=== PATIENT | female | born 1990 | race African-American/Black ===

== ENCOUNTER 2022-05-17 16:14 | Emergency (ER) | payer OTHER ==
[2022-05-17 16:37] VITALS: BP 128/77
[2022-05-17 16:52] LABS: BASOPHILS # (AUTO) 0.1 10^3/uL (0.0-0.1); BASOPHILS % (AUTO) 1.2 %; EOSINOPHILS # (AUTO) 0.1 10^3/uL (0.0-0.7); EOSINOPHILS % (AUTO) 2.9 %; HGB - HEMOGLOBIN 11.1 g/dL (12.0-16.0); LYMPHOCYTES # (AUTO) 1.6 10^3/uL (1.5-3.5); LYMPHOCYTES % (AUTO) 39.4 %; MEAN CORPUSCULAR HEMOGLOBIN 27.7 pg (27.0-31.0); MEAN CORPUSCULAR HGB CONC 32.6 g/dL (32.0-36.0); MEAN CORPUSCULAR VOLUME 84.8 fL (81.0-99.0); MEAN PLATELET VOLUME 11.3 fL (7.9-10.8); MONOCYTES # (AUTO) 0.4 10^3/uL (0.0-1.0); MONOCYTES % (AUTO) 9.9 %; NEUTROPHILS # (AUTO) 1.9 10^3/uL (1.5-6.6); NEUTROPHILS % (AUTO) 46.6 %; PLT - PLATELET COUNT 196 10^3/uL (130-450); RED BLOOD COUNT 4.01 10^6/uL (4.20-5.40); RED CELL DISTRIBUTION WIDTH 12.9 % (12.0-15.0); WHITE BLOOD COUNT 4.2 x10^3/uL (4.8-10.8)
[2022-05-17 17:06] LABS: ALBUMIN 3.9 g/dL (3.2-5.5); ALBUMIN/GLOBULIN RATIO 1.3 (1.0-2.2); BILIRUBIN,TOTAL 0.5 mg/dL (0.2-1.0); CALCIUM 8.9 mg/dL (8.5-10.3); POTASSIUM 3.8 mmol/L (3.5-5.0)
--- NOTE | 2022-05-17 17:07 | XRAY Report ---
PROCEDURE: Chest 1 View X-Ray INDICATIONS: Chest pain TECHNIQUE: One view of the chest was acquired. COMPARISON: 02/21/2022 FINDINGS: Surgical changes and devices: None. Lungs and pleura: No pleural effusions or pneumothorax. Lungs are clear. Mediastinum: Mediastinal contours appear normal. Heart size is normal. Bones and chest wall: No suspicious bony lesions. Overlying soft tissues appear unremarkable. IMPRESSION: No acute cardiopulmonary findings Reviewed by: Chilo Toussaint MD on 05/17/2022 4:06 PM [facility] Approved by: Chilo Toussaint MD on 05/17/2022 4:06 PM [facility] Station ID: [id number]
--- NOTE | 2022-05-17 17:19 | ED Physician Documentation ---
History of Present Illness - Stated complaint Stated Complaint: CHEST PALPITATIONS - Chief complaint Chief Complaint: Cardiac - History obtained from History obtained from: Patient - History of Present Illness Timing: Other (Several months) Pain level max: 0 Pain level now: 0 - Additonal information Additional information: Patient is a 32-year-old female who states she has had ongoing palpitations for the past several months. Nothing seems to make it better or worse. She does not drink energy drinks or caffeine. She has been seen here for this in the past with a normal work-up. She states that her doctor is referred her to cardiology but has not ordered any further testing. She states that she feels like her heart races but when she checks on her blood pressure machine at home but says her heart rate is in the 80s. No fevers. No chills. No nausea or vomiting. No chest pain. No possibility of . No leg swelling. No PE/DVT risk factors. Not on any hormonal control. Patient currently does not feel the palpitations Review of Systems Constitutional: denies: Fever, Chills Respiratory: denies: Cough GI: denies: Vomiting, Diarrhea : denies: Now EGA Skin: denies: Rash Musculoskeletal: denies: Neck pain, Back pain Neurologic: denies: Headache PD PAST MEDICAL HISTORY - Past Medical History Past Medical History: No - Present Medications Home Medications: Ambulatory Orders Medication Instructions Recorded Confirmed Multivit-Minerals/Folic Acid 200 mcg PO 02/21/22 [Multivitamin Gummies] - Allergies Allergies/Adverse Reactions: Allergies Allergy/AdvReac Type Severity Reaction Status Date / Time No Known Drug Allergies Allergy Verified 05/17/22 16:22 - Social History Does the pt smoke?: No Smoking Status: Never smoker PD ED PE NORMAL - Vitals Vital signs reviewed: Yes - General General: Alert and oriented X 3, No acute distress, Well developed/nourished - HEENT HEENT: PERRL, Moist mucous membranes - Neck Neck: Supple, no meningeal sign - Cardiac Cardiac: RRR, Strong equal pulses - Respiratory Respiratory: No respiratory distress, Clear bilaterally - Abdomen Abdomen: Soft, Non tender, Non distended - Derm Derm: Warm and dry - Extremities Extremities: No edema, No calf tenderness / cord - Neuro Neuro: Alert and oriented X 3 - Psych Psych: Normal mood, Normal affect Results - Vitals Vitals: Vital Signs - 24 hr 06/19/22 06/19/22 16:19 16:36 Temperature 36.8 C Heart Rate 90 79 Respiratory 14 18 Rate Blood Pressure 136/77 H 128/77 O2 Saturation 100 100 Oxygen O2 Source Room air - EKG (time done) 1617 Rate: Rate (enter#) (75) Rhythm: NSR [place]: Normal Intervals: Normal IA QRS: Normal Ischemia: Normal ST segments - Labs Labs: Laboratory Tests 05/17/22 05/17/22 05/17/22 16:46 16:46 16:46 WBC 4.2 L RBC 4.01 L Hgb 11.1 L Hct 34.0 L MCV 84.8 MCH 27.7 MCHC 32.6 RDW 12.9 Plt Count 196 MPV 11.3 H Neut # (Auto) 1.9 Lymph # (Auto) 1.6 [place] # (Auto) 0.4 Eos # (Auto) 0.1 Baso # (Auto) 0.1 Absolute Nucleated RBC 0.00 Nucleated RBC % 0.0 Sodium 137 Potassium 3.8 Chloride 104 Carbon Dioxide 26 Anion Gap 7.0 BUN 15 Creatinine 1.0 Estimated GFR (MDRD) 77 L Glucose 93 Calcium 8.9 Total Bilirubin 0.5 AST 16 ALT 17 Alkaline Phosphatase 39 L Troponin I High Sens < 2.3 L Total Protein 7.0 Albumin 3.9 Globulin 3.1 Albumin/Globulin Ratio 1.3 Lipase 28 - Rads (name of study) cxr Radiology: Final report received, EMP read contemporaneously, See rad report PD MEDICAL DECISION MAKING - ED course Complexity details: reviewed old records, reviewed results, re-evaluated patient, considered differential (No ST elevation [place], no aortic dissection, no PE, no tension pneumothorax, no aortic aneurysm), d/w patient ED course: No acute findings on EKG, laboratory testing or chest x-ray. Recommend that she follow-up with her doctor for a Holter monitor. This can be ordered prior to her cardiology consult. No arrhythmias on telemetry here. Patient counseled regarding signs and symptoms for which I believe and urgent re-evaluation would be necessary. Patient with good understanding of and agreement to plan and is comfortable going home at this time This document was made in part using voice recognition software. While efforts are made to proofread this document, sound alike and grammatical errors may occur. Departure - Departure Disposition: Home, Self Care Clinical Impression: Palpitations Condition: Good Instructions: ED Palpitations Follow-Up: Your,doctor in 1 week [Other] Comments: You should ask your doctor about prescribing a Holter monitor for you. This is a monitor you can wear for anywhere from a few days up to a month. It will record your heart rhythm and send a result to a oil winterizer to be looked at. This can be ordered prior to your cardiology appointment. They do have these types of monitors here at the hospital if your doctor would like to send a referral here. Your blood work does not show any acute abnormalities. Please avoid caffeine, alcohol. Return if you worsen Discharge Date/Time: 05/17/22 17:28
== END 2022-05-17 17:28 | disposition home or self-care (01) ==
LOC: ED 16:14
DX: R00.2 Palpitations (principal)
CPT/HCPCS: 36415; 80053; 83690; 84484; 85025; 93005; 99283; 99284

== ENCOUNTER 2022-06-24 16:53 | Emergency (ER) | payer OTHER ==
[2022-06-24 17:01] VITALS: BP 142/88
[2022-06-24] MEDS ORDERED: BACITRACIN ZINC OINT 1 PACKET TOP STA (18:26)
--- NOTE | 2022-06-24 18:30 | ED Physician Documentation ---
History of Present Illness - Stated complaint Stated Complaint: LT FINGER LAC - Chief complaint Chief Complaint: Laceration - Additonal information Additional information: 32-year-old female presents emergency department for evaluation of a laceration on the dorsum of her left middle finger sustained when cutting chicken this afternoon. Uncertain of last tetanus but she declines tetanus update today. Patient is right-hand dominant Review of Systems Constitutional: reports: Reviewed and negative Cardiac: reports: Reviewed and negative Respiratory: reports: Reviewed and negative GI: reports: Reviewed and negative : reports: Reviewed and negative Skin: reports: Laceration (s) Musculoskeletal: reports: Reviewed and negative PD PAST MEDICAL HISTORY - Present Medications Home Medications: Ambulatory Orders Medication Instructions Recorded Confirmed Multivit-Minerals/Folic Acid 200 mcg PO 02/21/22 [Multivitamin Gummies] - Allergies Allergies/Adverse Reactions: Allergies Allergy/AdvReac Type Severity Reaction Status Date / Time No Known Drug Allergies Allergy Verified 06/24/22 17:02 - Social History Does the pt smoke?: No Smoking Status: Never smoker PD ED PE EXPANDED - Extremities Extremities: Left finger(s) (0.5 cm laceration on the dorsum of the left middle finger at the DIP joint. Preserved flexion and extension.) Results - Vitals Vitals: Vital Signs - 24 hr 06/24/22 16:59 Temperature 36.6 C Heart Rate 69 Respiratory 16 Rate Blood Pressure 142/88 H O2 Saturation 100 Oxygen O2 Source Room air PD MEDICAL DECISION MAKING - ED course Complexity details: considered differential, d/w patient ED course: 32-year-old female presents emergency department for evaluation of a 0.5 cm laceration on the dorsum of her left middle finger. On exam no evidence of tendon injury. This is a very small and superficial wound that I do not feel would benefit from primary closure. Discussed routine wound care, Neosporin and simple bandage. Emergent return precautions discussed Departure - Departure Disposition: 01 Home, Self Care Clinical Impression: Finger laceration Qualifiers: Encounter type: initial encounter Finger: middle finger Damage to nail status: without damage Foreign body presence: without foreign body Laterality: left Qualified Code(s): S61.213A - Laceration without foreign body of left middle finger without damage to nail, initial encounter Condition: Stable Record reviewed to determine appropriate education?: Yes Comments: The laceration on the top of your left middle finger is small enough that it will heal well without any formal closure such as suturing. In general I recommend that you wash your hand with warm soap and water, pat dry apply any antibiotic ointment such as bacitracin or Neosporin and then a simple bandage. I would expect this wound to be fully healed over the next week.
[2022-06-24] MEDS ORDERED: BACITRACIN ZINC OINT 1 PACKET TOP ONE (18:42)
== END 2022-06-24 18:34 | disposition home or self-care (01) ==
LOC: ED 16:53
DX: S61.213A Laceration without foreign body of left middle finger without damage to nail, initial encounter (principal); W26.0XXA Contact with knife, initial encounter; Y93.G1 Activity, food preparation and clean up
CPT/HCPCS: 99281; 99282; A9270

== ENCOUNTER 2022-06-29 08:00 | Outpatient (CLI) | payer OTHER ==
[2022-06-29 20:38] LABS: BASOPHILS % (AUTO) 0.9 %; EOSINOPHILS # (AUTO) 0.1 10^3/uL (0.0-0.7); EOSINOPHILS % (AUTO) 2.3 %; HCT - HEMATOCRIT 33.4 % (37.0-47.0); HGB - HEMOGLOBIN 11.1 g/dL (12.0-16.0); LYMPHOCYTES # (AUTO) 1.7 10^3/uL (1.5-3.5); LYMPHOCYTES % (AUTO) 38.1 %; MEAN CORPUSCULAR HEMOGLOBIN 28.1 pg (27.0-31.0); MEAN CORPUSCULAR HGB CONC 33.2 g/dL (32.0-36.0); MEAN CORPUSCULAR VOLUME 84.6 fL (81.0-99.0); MEAN PLATELET VOLUME 12.1 fL (7.9-10.8); MONOCYTES # (AUTO) 0.3 10^3/uL (0.0-1.0); MONOCYTES % (AUTO) 7.5 %; NEUTROPHILS # (AUTO) 2.3 10^3/uL (1.5-6.6); PLT - PLATELET COUNT 232 10^3/uL (130-450); RED BLOOD COUNT 3.95 10^6/uL (4.20-5.40); RED CELL DISTRIBUTION WIDTH 13.2 % (12.0-15.0); WHITE BLOOD COUNT 4.4 x10^3/uL (4.8-10.8)
[2022-06-29 20:53] LABS: ALBUMIN 4.3 g/dL (3.2-5.5); ALBUMIN/GLOBULIN RATIO 1.6 (1.0-2.2); BILIRUBIN,TOTAL 0.5 mg/dL (0.2-1.0); CALCIUM 9.4 mg/dL (8.5-10.3); CREATININE 0.8 mg/dL (0.4-1.0); POTASSIUM 3.9 mmol/L (3.5-5.0)
[2022-06-29 21:09] LABS: THYROID STIMULATING HORMONE 1.52 uIU/mL (0.34-5.60)
== END 2022-06-29 23:59 | disposition home or self-care (01) ==
LOC: LAB.N 08:00
PROVIDERS: ATTEND Registered Nurse
DX: R07.89 Other chest pain (principal)
CPT/HCPCS: 36415; 80053; 84443; 84484; 85025; 85379

== ENCOUNTER 2022-10-11 20:36 | Emergency (ER) | payer OTHER ==
--- NOTE | 2022-10-11 21:16 | XRAY Report ---
PROCEDURE: Chest 1 View X-Ray INDICATIONS: Chest pain TECHNIQUE: One view of the chest was acquired. COMPARISON: 05/17/2022. FINDINGS: Surgical changes and devices: None. Lungs and pleura: No pleural effusions or pneumothorax. Lungs are clear. Mediastinum: Mediastinal contours appear normal. Heart size is normal. Bones and chest wall: No suspicious bony lesions. Overlying soft tissues appear unremarkable. IMPRESSION: 1. No acute cardiopulmonary disease. Reviewed by: Reza Fuentes MD on 10/11/2022 9:15 PM [facility] Approved by: Reza Fuentes MD on 10/11/2022 9:15 PM [facility] Station ID: [id number]
[2022-10-11 21:32] LABS: BASOPHILS % (AUTO) 0.4 %; EOSINOPHILS % (AUTO) 0.4 %; HCT - HEMATOCRIT 34.6 % (37.0-47.0); HGB - HEMOGLOBIN 11.5 g/dL (12.0-16.0); LYMPHOCYTES # (AUTO) 0.4 10^3/uL (1.5-3.5); LYMPHOCYTES % (AUTO) 7.1 %; MEAN CORPUSCULAR HEMOGLOBIN 27.9 pg (27.0-31.0); MEAN CORPUSCULAR HGB CONC 33.2 g/dL (32.0-36.0); MEAN PLATELET VOLUME 11.3 fL (7.9-10.8); MONOCYTES # (AUTO) 0.5 10^3/uL (0.0-1.0); MONOCYTES % (AUTO) 9.2 %; NEUTROPHILS # (AUTO) 4.4 10^3/uL (1.5-6.6); NEUTROPHILS % (AUTO) 82.5 %; PLT - PLATELET COUNT 164 10^3/uL (130-450); RED BLOOD COUNT 4.12 10^6/uL (4.20-5.40); RED CELL DISTRIBUTION WIDTH 12.8 % (12.0-15.0); WHITE BLOOD COUNT 5.3 x10^3/uL (4.8-10.8)
[2022-10-11 21:50] LABS: ALBUMIN 4.4 g/dL (3.2-5.5); ALBUMIN/GLOBULIN RATIO 1.4 (1.0-2.2); BILIRUBIN,TOTAL 0.7 mg/dL (0.2-1.0); CALCIUM 9.5 mg/dL (8.5-10.3); POTASSIUM 3.6 mmol/L (3.5-5.0); TOTAL PROTEIN 7.5 g/dL (6.7-8.2)
--- NOTE | 2022-10-12 00:13 | ED Physician Documentation ---
History of Present Illness - Stated complaint Stated Complaint: RAPID HR - Chief complaint Chief Complaint: Cardiac - History obtained from History obtained from: Patient - Additonal information Additional information: 33-year-old woman with past medical history of palpitations status post negative Holter monitoring and echocardiogram, presents with palpitations this past evening. Patient also has had nonproductive cough and chills for the past 1 to 2 days. Son is sick at home with similar symptoms. Denies shortness of breath, nausea, diaphoresis, leg swelling, rhinorrhea. Review of Systems Ten Systems: 10 systems reviewed and negative Constitutional: reports: Chills, Fatigue Nose: denies: Rhinorrhea / runny nose Throat: reports: Sore throat Cardiac: reports: Chest pain / pressure, Palpitations Respiratory: reports: Cough. denies: Dyspnea GI: denies: Nausea PD PAST MEDICAL HISTORY - Present Medications Home Medications: Ambulatory Orders Medication Instructions Recorded Confirmed Multivit-Minerals/Folic Acid 200 mcg PO DAILY 02/21/22 10/11/22 [Multivitamin Gummies] Oseltamivir Phosphate [Tamiflu] 75 mg PO BID #10 cap 10/12/22 - Allergies Allergies/Adverse Reactions: Allergies Allergy/AdvReac Type Severity Reaction Status Date / Time No Known Drug Allergies Allergy Verified 10/11/22 20:45 - Social History Does the pt smoke?: No Smoking Status: Never smoker PD ED PE NORMAL - Vitals Vital signs reviewed: Yes - General General: Alert and oriented X 3, No acute distress, Well developed/nourished - HEENT HEENT: Atraumatic, PERRL, EOMI, Moist mucous membranes, Pharynx benign - Neck Neck: Supple, no meningeal sign - Cardiac Cardiac: RRR - Respiratory Respiratory: No respiratory distress, Clear bilaterally - Abdomen Abdomen: Non tender, Non distended - Derm Derm: Normal color, Warm and dry - Extremities Extremities: No edema - Neuro Neuro: Alert and oriented X 3, roll grinder 2-12 intact, No motor deficit, No sensory deficit - Psych Psych: Other (anxious affect, improving after exam) Results - Vitals Vitals: Vital Signs - 24 hr 10/11/22 10/11/22 10/11/22 20:41 21:56 23:00 Temperature 37.8 C Heart Rate 141 H 119 H 109 H Respiratory 16 18 18 Rate Blood Pressure 170/89 H 129/84 H 131/87 H O2 Saturation 99 100 100 Oxygen O2 Source Room air - Labs Labs: Laboratory Tests 10/11/22 10/11/22 10/11/22 21:26 21:26 21:26 WBC 5.3 RBC 4.12 L Hgb 11.5 L Hct 34.6 L MCV 84.0 MCH 27.9 MCHC 33.2 RDW 12.8 Plt Count 164 MPV 11.3 H Neut # (Auto) 4.4 Lymph # (Auto) 0.4 L [place] # (Auto) 0.5 Eos # (Auto) 0.0 Baso # (Auto) 0.0 Absolute Nucleated RBC 0.00 Nucleated RBC % 0.0 Sodium 136 Potassium 3.6 Chloride 105 Carbon Dioxide 25 Anion Gap 6.0 BUN 12 Creatinine 1.0 Estimated GFR (MDRD) 77 L Glucose 128 H Calcium 9.5 Total Bilirubin 0.7 AST 17 ALT 17 Alkaline Phosphatase 36 L Troponin I High Sens 3.7 Total Protein 7.5 Albumin 4.4 Globulin 3.1 Albumin/Globulin Ratio 1.4 Lipase 25 Influenza A (Rapid) Influenza B (Rapid) 10/12/22 00:15 WBC RBC Hgb Hct MCV MCH MCHC RDW Plt Count MPV Neut # (Auto) Lymph # (Auto) [place] # (Auto) Eos # (Auto) Baso # (Auto) Absolute Nucleated RBC Nucleated RBC % Sodium Potassium Chloride Carbon Dioxide Anion Gap BUN Creatinine Estimated GFR (MDRD) Glucose Calcium Total Bilirubin AST ALT Alkaline Phosphatase Troponin I High Sens Total Protein Albumin Globulin Albumin/Globulin Ratio Lipase Influenza A (Rapid) POSITIVE H Influenza B (Rapid) Negative PD MEDICAL DECISION MAKING - ED course ED course: 33yF p/w palpitations that have already been thoroughly worked up in past, in addition to URI sx today. Well-appearing on exam. Discussed with patient that her test results showed no emergent findings. Discussed her anemia. Plan to follow-up with her primary care provider. Return precautions given. We will send Flu swab to determine if she would be a candidate for Tamiflu. Departure - Departure Disposition: 01 Home, Self Care Clinical Impression: Viral upper respiratory illness, Palpitations Condition: Stable Instructions: ED Viral Syndrome Prescriptions: Oseltamivir Phosphate [Tamiflu] 75 mg PO BID #10 cap Comments: You were seen in the ED for palpitations. Your labwork, ekg, chest xray and exam uncovered no emergent findings. You do have the flu (influenza A) and should stay home and get lots of rest. Take tamiflu (antiviral treatment) to help get better. Please follow up with your primary care provider. Return to the ED for any new or worsening symptoms or if you have other concerns. Tamiflu [facility].
[2022-10-12] MEDS ORDERED: ACETAMINOPHEN 325 MG TABLET PO STA (02:03)
[2022-10-12 02:04] VITALS: BP 126/80
== END 2022-10-12 02:07 | disposition home or self-care (01) ==
LOC: ED 20:36
DX: J06.9 Acute upper respiratory infection, unspecified (principal); R00.2 Palpitations
CPT/HCPCS: 36415; 71045; 80053; 83690; 84484; 85025; 87275; 87276; 93005; 99282; 99284; A9270

== ENCOUNTER 2025-07-18 08:18 | Inpatient (IN) ==
[2025-07-18] MEDS ORDERED: OXYTOCIN 10 UNIT/ML VIAL IM PRN (08:55)
[2025-07-18] MEDS ORDERED: METHYLERGONOVINE 0.2 MG/ML VIAL IM PRN (08:55)
[2025-07-18] MEDS ORDERED: ONDANSETRON ODT 4 MG TABLET PO PRN (08:55)
[2025-07-18] MEDS ORDERED: ACETAMINOPHEN 500 MG TABLET PO PRN ×2 (08:55)
[2025-07-18] MEDS ORDERED: fentaNYL 100 MCG/2 ML VIAL IVP PRN (08:55)
[2025-07-18] MEDS ORDERED: SODIUM CHLORIDE FLUSH 0.9% 10 ML SYRINGE IVP PRN (08:55)
[2025-07-18] MEDS ORDERED: DOCUSATE SODIUM 100 MG CAPSULE PO PRN (08:55)
[2025-07-18] MEDS ORDERED: LABETALOL 20 MG/4 ML SYRINGE IVP PRN ×3 (08:55)
[2025-07-18] MEDS ORDERED: hydrALAZINE INJ 20 MG/ML VIAL IVP PRN (08:55)
[2025-07-18] MEDS ORDERED: CALCIUM CARBONATE CHEW 500 MG TABLET PO PRN ×2 (08:55→17:39)
[2025-07-18] MEDS ORDERED: TRANEXAMIC ACID IN NACL 1,000 MG/100 ML BAG IV PRN (08:55)
[2025-07-18] MEDS ORDERED: TERBUTALINE 1 MG/ML VIAL SUBQ PRN (08:55)
[2025-07-18] MEDS ORDERED: METOCLOPRAMIDE 10 MG TABLET PO PRN (08:55)
[2025-07-18] MEDS ORDERED: CARBOPROST TROMETHAMINE 250 MCG/ML VIAL IM PRN (08:55)
[2025-07-18] MEDS: FAMOTIDINE 20 MG/2 ML VIAL IVP SCH (09:00)
[2025-07-18] MEDS: SODIUM CHLORIDE FLUSH 0.9% 10 ML SYRINGE IVP SCH (09:00)
[2025-07-18 09:07] LABS: HCT - HEMATOCRIT 34.1 % (37.0-47.0); HGB - HEMOGLOBIN 11.6 g/dL (12.0-16.0); MEAN PLATELET VOLUME 11.0 fL (7.9-10.8); NRBC ABSOLUTE COUNT (AUTO) 0.00 x10^3/uL; NUCLEATED RED BLOOD CELLS AUTO 0.0 /100WBC; PLT - PLATELET COUNT 155 10^3/uL (130-450); RED CELL DISTRIBUTION WIDTH 13.2 % (12.0-15.0)
[2025-07-18 09:28] LABS: ALT ALANINE AMINOTRANSFERASE 30.0 IU/L (10-60); AST ASPARTATE AMINOTRANSFERASE 44.0 IU/L (10-42); BUN - BLOOD UREA NITROGEN 11.0 mg/dL (6-20); CARBON DIOXIDE - CO2 23.0 mmol/L (21-32); CREATININE 0.9 mg/dL (0.6-1.3); GFR - MDRD 85.0 (>89)
--- NOTE | 2025-07-18 09:28 | HISTORY & PHYSICAL EXAMINATION ---
Admit History Smoking Status: Never smoker Other Maternal History Other Maternal History: HPI: Patient is a 35-year-old -0-1-3 at 39 weeks 0 days gestation presenting for induction of labor secondary to chronic hypertension and advanced maternal age.. She has good movement. Denies loss of fluid. No GARRIDO/BV or RUQP. No vaginal bleeding. Denies nausea and vomiting. Denies urinary urgency or dysuria. All other symptoms reviewed and were negative except per HPI. Course LMP: 10/18/2024 BENJAMIN by LMP: 07/25/2025 [place]: 02/15/25 @17w2d c/w LMP Final BENJAMIN: 07/25/25 History of chronic hypertension: On medication previous pregnancies. Blood pressure normal at intake visit. No current medications Recommended starting low-dose aspirin, declined. Born in [place]. [place] 14 years[place] in [place]. orders to move to [place] mid June. so will move just after delivery. AMA recommend induction by 40 weeks and NST at 36 weeks. Heart Palpitations: First in 2020, but saw cardiology and were not worried. Recurred this but normal EKG Heart Monitor: Mostly normal rhythm, but some periods of increased heart rate and rare PAC. N rhythm abnormality otherwise. Pre- Weight: 188 lbs BMI: 25.7 Blood type: A+ Antibody Screen: negative CBC: H/H/PLT 10.6/31.5/158 RUB: NOT immune VZV: immune HBsAg: neg HepC: NR RPR: NR HIV: NR Flu: declines Covid: vaccinated PAP: 08/2024 normal GC/CT:negative HSV: denies self/partner Genetic testing: NIPT- Negative FAS:ordered 04/11- scheduled 04/17 evening Placenta: posterior fundal without previa Cord: 3VC MAGALIE: 15.9 WNL EFW: 930.5g 62.6% 50gm OGCT: 106 3HR GTT: TDAP: 05/15/25 Breast Pump: 05/15/25 EPDS: 5 RSV: out of season CBC:H/H/PLT-11.0/33.9 149 RPR: NR GBS: Delivery plan: PP BC: Likely OCPs versus implant, wants to wait several months after delivery. Will talk to her partner about a vasectomy as they are fairly certain they are done childbearing. Meds/Allgy Home Medications Ambulatory Orders Medication Instructions Recorded Confirmed vitamins 30 30 mg iron-10 cap PO 02/15/2511/22 mg iron-folic acid 1 mg-om3 capsule Allergies Allergies Allergy/AdvReac Type Severity Reaction Status Date / Time No Known Drug Allergies Allergy Verified 07/10/25 09:03 COUNT INCLUDES THE [facility] Active Problems All Active Problems (Updated 07/18/25 @ 09:28 by Luke Hi MD) Chronic hypertension (Acute) 39 weeks gestation of (Acute) Uterine size date discrepancy (Acute) Supervision of elderly multigravida (Acute) Encounter for supervision of normal , unspecified, unspecified trimester (Acute) Social History Social History (Updated 02/15/25 @ 14:05 by Nicole Ryan RN) Smoking Status: Never smoker Second hand tobacco smoke exposure: No Do you dip or chew tobacco?: No Do you vape?: No Living arrangement: At home Do you feel safe in your home environment?: Yes History of physical, verbal, emotional, or financial abuse?: No ETOH Use: None Substance Use: denies use Are you sexually active?: Yes POLST Patient has POLST: No Review of Systems Status of ROS: 10 or more systems reviewed and unremarkable except as noted in history and below Physical Other Notes Labor Progress Note/Additional Text: General: Alert, oriented, no acute distress Head: Normal cephalic atraumatic Eyes: PERRLA, extraocular motions intact. Respiratory: Normal rate of respiration. No accessory muscle use, normal respiratory effort. Abdomen: Gravid, nontender, nondistended Extremities: Normal range of motion Neuro: Oriented x3. Normal movements Psych: Appropriate mood and affect. Normal judgment and insight SVE: 3/50/-3 FHT: 145 BPM baseline, moderate variability, accelerations present, no decelerations. [place]: Irregular, patient is not aware of them Plan for Labor Plan For Labor I expect patient to be DC'd or transferred within 96 hours.: Yes Conclusion/Plan Problem List (1) 39 weeks gestation of : Plan: Admit to L&D, admit labs, epidural patient's request. Favorable cervix. Will start oxytocin and consider amniotomy at next check. (2) Chronic hypertension: Plan: Mild blood pressure today. Will continue to monitor. Start antihypertensive if needed. (3) Supervision of elderly multigravida: Plan: As above. Qualifiers: Trimester: third trimester Qualified Code(s): O09.523 - Supervision of elderly multigravida, third trimester Lab Results 07/18/25 08:45
[2025-07-18] MEDS: OXYTOCIN/SODIUM CHLORIDE 500 ML IV SCH (10:08)
[2025-07-18] MEDS: LACTATED RINGERS 1,000 ML IV PRN (10:11)
--- OUTSIDE RECORDS SUMMARY | 2025-07-18 10:21 | EXTERNAL MEDICAL SUMMARY RPT | Continuity of Care Document ---
Author Organization [facility] Address [address] [place], [place] [address]te [address] [place] [id number] Phone Problems date description facility 2025-05-09 11:19 Encounter for superv ision of normal , unspecified, unspecified trimester [facility] 2025-05-10 00:04 Encounter for superv ision of normal , unspecified, unspecified trimester [facility] 2025-05-14 00:00 Urinary tract infection, site n ot specified [facility] 2025-05-14 10:20 Urinary tract infection, site n ot specified [facility] 2025-05-15 13:40 [facility] 2025-05-15 13:56 En[facility] 2025-05-15 15:28 Encounter for immunization [facility] 2025-05-16 15:49 Urinary tract infection, site n ot specified [facility] 2025-05-16 15:49 Palpitations [facility] 2025-05-16 15:49 Other chest pain [facility] 2025-06-26 09:58 Supervision of elder ly multigravida, unspecified trimester [facility] 2025-06-26 09:58 Uterine size-date discrepancy, unspecified trimester [facility] 2025-06-27 08:20 Supervision of elder ly multigravida, unspecified trimester [facility] 2025-06-27 08:20 Uterine size-date discrepancy, unspecified trimester [facility] 2025-06-28 14:14 Supervision of elder ly multigravida, unspecified trimester [facility] 2025-06-28 14:14 Uterine size-date discrepancy, unspecified trimester [facility] 2025-06-28 14:16 Supervision of elder ly multigravida, unspecified trimester [facility] 2025-06-28 14:16 Uterine size-date discrepancy, unspecified trimester [facility] 2025-07-03 09:40 Encounter for screeni ng for Streptococcus B [facility] 2025-07-03 10:35 Encounter for screeni ng for Streptococcus B [facility] 2025-07-04 00:03 Encounter for screeni ng for Streptococcus [facility] 2025-07-04 19:43 Supervision of elder ly multigravida, unspecified trimester [facility] 2025-07-04 19:43 Uterine size-date discrepancy, unspecified trimester [facility] 2025-07-05 00:02 Supervision of elder ly multigravida, unspecified trimester [facility] 2025-07-05 00:02 Uterine size-date discrepancy, unspecified trimester [facility] 2025-07-05 08:58 Supervision of elderly multigra fabiana, third trimester [facility] 2025-07-05 08:58 Encounter for screeni ng for Streptococcus B [facility] 2025-07-05 08:59 Encounter for screeni ng for Streptococcus B [facility] 2025-07-10 10:19 Supervision of elder ly multigravida, unspecified trimester [facility] 2025-07-13 14:35 Supervision of elderly multigra fabiana, third trimester [facility] 2025-07-13 14:35 Supervision of elder ly multigravida, unspecified trimester [facility] 2025-07-18 09:31 Essential (primary) hypertensio n [facility] 2025-07-18 09:31 Supervision of elderly multigra fabiana, third trimester [facility] 2025-07-18 09:31 39 weeks gestation of [facility] 2025-07-18 09:32 Essential (primary) hypertensio n [facility] 2025-07-18 09:32 Supervision of elderly multigra fabiana, third trimester [facility] 2025-07-18 09:32 39 weeks gestation of [facility] Results/Labs test date facility value unit notes Result panel 1 MEAN PLATELET VOLUME 2025-05-09 12:31 [facility] 10.9 fl (missing) GLUCOSE,1H PP 50GM DOSE 2025-05-09 12:31 [facility] 106 mg/dl Social History date description facility
[2025-07-18 13:25] LABS: TOTAL PROTEIN,URINE TIMED 10.0 mg/dL
--- NOTE | 2025-07-18 14:01 | ANESTHESIA PROCEDURE NOTE ---
Pre-Anesthesia VS, & Labs Diagnosis Surgical Diagnosis:: induction of labor Procedure Procedure: vaginal delivery Vitals Vital Signs: Temp Pulse Resp BP 36.8 C 82 16 146/93 H 07/18/25 08:58 07/18/25 08:58 07/18/25 08:58 07/18/25 08:58 NPO NPO: Other (clear liquids) Is Patient ?: Yes Lab Results Current Lab Results: Laboratory Tests 07/18/25 09:21: Blood Type Recheck A POSITIVE 07/18/25 08:45: WBC 6.6, RBC 3.94 L, Hgb 11.6 L, Hct 34.1 L, MCV 86.5, MCH 29.4, MCHC 34.0, RDW 13.2, Plt Count 155, MPV 11.0 H, Neut # (Auto) 4.4, Lymph # (Auto) 1.4 L, [place] # (Auto) 0.6, Eos # (Auto) 0.1, Baso # (Auto) 0.0, Absolute Nucleated RBC 0.00, Nucleated RBC % 0.0, Sodium 135, Potassium 3.8, Chloride 107, Carbon Dioxide 23, Anion Gap 5.0 L, BUN 11, Creatinine 0.9, Estimated GFR (MDRD) 85 L, Glucose 104, Calcium 9.2, Total Bilirubin 0.5, AST 44 H, ALT 30, A lkaline Phosphatase 193 H, Total Protein 6.2 L, Albumin 3.4, Globulin 2.8, Albumin/Globulin Ratio 1.2, Blood Type A POSITIVE, Antibody Screen NEGATIVE Lab results reviewed: Yes 07/18/25 08:45 07/18/25 08:45 Meds/Allgy Home Medications Ambulatory Orders Medication Instructions Recorded Confirmed vitamins 30 30 mg iron-10 cap PO 02/15/2511/22 mg iron-folic acid 1 mg-om3 capsule Allergies Allergies Allergy/AdvReac Type Severity Reaction Status Date / Time No Known Drug Allergies Allergy Verified 07/10/25 09:03 PFS Active Problems All Active Problems Chronic hypertension (Acute) 39 weeks gestation of (Acute) Uterine size date discrepancy (Acute) Supervision of elderly multigravida (Acute) Encounter for supervision of normal , unspecified, unspecified trimester (Acute) Social History Social History (Updated 07/18/25 @ 09:28 by Luke Hi MD) Smoking Status: Never smoker Second hand tobacco smoke exposure: No Do you dip or chew tobacco?: No Do you vape?: No Patient requests smoking cessation consult: No Initiate information on smoking cessation: No Living arrangement: At home Do you feel safe in your home environment?: Yes History of physical, verbal, emotional, or financial abuse?: No ETOH Use: None Substance Use: denies use Are you sexually active?: Yes POLST Patient has POLST: No Anesthesia Exam (Expanded) Exam General: Alert, Oriented x3 and Cooperative Dental: WNL Mouth Openin Fingerbreadth Neck Mobility: Normal Mallampati classification: II Thyromental Distance: 4-6 cm Exam Exam Vital Signs: Vital Signs x48h Temp Pulse Resp BP 07/18/25 08:58 36.8 C 82 16 146/93 H Plan Plan Anesthesia Type: Epidural Consent for Procedure(s) Verified and Reviewed: Yes Code Status: Attempt Resuscitation ASA Classification ASA classification: 2-Mild systemic disease Is this case an emergency?: No
--- NOTE | 2025-07-18 14:08 | PROVIDER PROGRESS NOTE ---
Labor Progress Note Labor Progress Note Labor Progress Note/Additional Text: Contractions present but not strong. Better head engagement. Amniotomy performed after discussion. Clear fluid. Fetus category 1. 135 beats minute baseline, moderate variability, accelerations present, no decelerations. Irregular contr actions. Epidural at patient's request.
[2025-07-18] MEDS ORDERED: BUPIVACAINE 0.25% PF 10 ML VIAL ONE (15:20)
[2025-07-18] MEDS: OXYTOCIN/SODIUM CHLORIDE 500 ML IV PRN (16:17)
[2025-07-18] MEDS ORDERED: WITCH HAZEL/GLYCERIN 1 PAD TOP PRN (17:39)
[2025-07-18] MEDS ORDERED: ONDANSETRON 4 MG/2 ML VIAL IVP PRN (17:39)
[2025-07-18] MEDS ORDERED: SIMETHICONE CHEW 80 MG TABLET PO PRN (17:39)
[2025-07-18] MEDS ORDERED: LACTATED RINGERS 1,000 ML IV SCH (18:00)
--- NOTE | 2025-07-18 18:06 | DELIVERY NOTE ---
Delivery Note Labor Labor: positive Augmented by ARM and Augmented by oxytocin Presentation Presentation: positive Vertex Amniotic Fluid Description Amniotic Fluid Description: positive Clear Laceration Laceration: positive 1st degree Suture Suture Type: positive Vicryl Suture Size: positive 3-0 Delivery Outcome Delivery Date: 07/18/25 Delivery Time: 16:13 Delivery Outcome: positive Livebirth Paradox Paradox: positive Placed in direct skin contact with mother sex: positive Male Cord Cord: positive 3 vessels Placenta Placenta: positive Spontaneous Estimated Blood Loss Estimated Blood Loss (in cc): 150 Post Delivery Events Post Delivery Events: positive No post delivery events Delivery Comments (Free Text/Narrative) Delivery Comments (Free Text/Narrative): Preoperative Diagnoses 39 weeks gestation Chronic hypertension Advanced maternal age Postoperative Diagnoses Same Delivery of live padilla Status post spontaneous vaginal delivery Summary Patient is admitted at 39 weeks for induction of labor secondary to chronic hypertension. She was checked and found to have a favorable cervix, so oxytocin was started as head is not engaged. She had an amniotomy performed her for several hours and quickly progressed. She was noted to be complete, very uncomfortable, and asked for neuraxial anesthesia. We did perform a spinal block which allowed her some relief. During the placement, we decreased her oxytocin, so after block, had to restart. She then progressed able to push and when ready was in stirrups. Delivery Summary: Patient was placed in the dorsal lithotomy position. Upon maternal pushing the head was delivered atraumatically followed by the anterior shoulder, posterior shoulder, then the remainder of the 's body. A male was delivered with APGARS of 8 at 1 minute and 9 at 5 minutes. The was placed on its mother's chest . After the cord finished pulsating, the umbilical cord was clamped times two and cut. The placenta delivered intact with three vessel cord. Placenta was not sent to pathology. Thirty units of Pitocin were added to the IV fluid and allowed to run freely. Uterine massage was performed until uterus was deemed firm. Upon inspection of the perineum, a second-degree midline laceration was noted in her previous scar tissue. This was repaired with a small suture of 3-0 Vicryl. Upon re-inspection the patient was hemostatic. Uterus again massaged and found to be firm. Needle and sponge counts were correct. Patient was stable and allowed to recover in L&D room. Infant was stable and remained in room with mother. weight 4250g.
[2025-07-18] MEDS: IBUPROFEN 600 MG TABLET PO SCH (18:22)
[2025-07-18] MEDS ORDERED: ACETAMINOPHEN 500 MG TABLET PO SCH (22:00)
--- NOTE | 2025-07-19 08:04 | Discharge Summary ---
Discharge Summary Admit Date: 07/18/25 Discharge Date: 07/19/25 Discharging Provider: Luke Hi MD DIAGNOSES Admission Diagnoses: 39 weeks gestation Chronic hypertension Advanced maternal age Discharge Diagnoses with Status of Each Condition: Status post spontaneous vaginal delivery Delivery of live padilla HPI History of Present Illness: Subjective Patient reports she is doing well. Lochia appropriate. Denies heavy bleeding. Ambulating. Pelvic and abdominal pain well-controlled. Tolerating oral intake. Diet: Regular. Voiding without difficulty. Passing flatus. Denies BM. Patient is bonding with baby in room Breast feeding going well. Supplementing with formula Denies feeling lightheaded, dizzy or excessively fatigued. Objective General: Alert, oriented, no apparent distress. Cardiovascular: Regular rate. Regular rhythm. Lungs: No increased work of breathing. Abdomen: Uterus firm. Below umbilicus. No guarding or rebound. Extremities: No pain on palpation. No cords palpated. Distal pulses intact. HOSPITAL COURSE Hospital Course: Patient is admitted for induction of labor for chronic hypertension, 39 weeks gestation, advanced maternal age. Induction was unremarkable and was augmented with oxytocin and amniotomy. She did a small first-degree midline laceration at an old scar. Recovery was unremarkable and she discharged with her day 1. ALLERGIES Allergies Allergy/AdvReac Type Severity Reaction Status Date / Time No Known Drug Allergies Allergy Verified 07/10/25 09:03 MEDICATIONS Ambulatory Orders Medication Instructions Recorded Confirmed vitamins 30 30 mg iron-10 cap PO 02/15/2511/22 mg iron-folic acid 1 mg-om3 capsule PHYSICAL EXAM AT DISCHARGE Vital Signs: Vital Signs x48h Temp Pulse Resp BP Pulse Ox 07/19/25 05:16 36.9 C 80 16 137/88 H 98 07/19/25 01:25 36.9 C 85 16 138/94 H 99 LABS 07/18/25 08:45 07/18/25 08:45 FOLLOW UP Follow Up: With [facility] women's care in 1 week Discharge Plan Discharge Patient Disposition: 01 Home, Self Care Prescriptions: Continued PNV [id number] 30 mg iron-10 mg iron-1 mg capsule PO Diet: Regular Print Language: Arabic Patient Instructions: After a Vaginal , Depression
[2025-07-19 08:17] VITALS: O2SAT 99
--- NOTE | 2025-07-19 08:53 | PHARMACY PROGRESS NOTE ---
Best Possible Medication History Admit Date and Time: 07/18/25 0855 Home Medications Medication Instructions Recorded Confirmed Type vitamins 30 30 mg iron-10 1 cap PO DAILY 01/2807/19/25 History mg iron-folic acid 1 mg-om3 capsule Processed by: Pharmacy Medications reviewed in ED?: No Medication History completed: Yes Patient Interview: Completed (by termite technicianPeter) Secondary Source(s): Physician records and Insurance records [facility] Statement: As the person ultimately responsible for medication therapy, providers are able to order a medication from an existing home medication list in [facility] via the "Reconcile Routine" prior to Confirmation of that medication by bioinformatics support specialist. Such practice is discouraged except when the physician, in their clinical judgment, deems that a medical need exists for a medication without regard to previous use.
[2025-07-19 17:57] VITALS: BP 136/82; TEMP 98.6
--- NOTE | 2025-07-19 19:12 | Labor Flowsheet ---
Labor Flowsheet Datetime Report Generated by CPN: 07/19/2025 19:11 Datetime: 07/19/2025 17:51 VITAL SIGNS NBP Sys/Chica/Mean (mmHg): 136 : 82 : 94 Pulse: 82 Datetime: 07/19/2025 17:50 SpO2 (%): 99 Datetime: 07/18/2025 16:44 Membranes Ruptured Date/Time: 07/18/2025 13:30 Datetime: 07/18/2025 16:38 MEDICATIONS Pitocin (milliunits): Discontinued Datetime: 07/18/2025 16:20 Stage of : Recovery Datetime: 07/18/2025 16:19 Communication Comments: Delivery of placenta Datetime: 07/18/2025 16:17 Medication Comments: Pitocin Bolus Datetime: 07/18/2025 16:13 COMMUNICATION Communication: RN at Bedside; Provider at Bedside Datetime: 07/18/2025 16:11 LaborFlag: Labor Datetime: 07/18/2025 16:03 Comments: Audible FHR Not showing in the monitor Datetime: 07/18/2025 16:01 Monitor Interventions for FHR: Ultrasound Adjusted Datetime: 07/18/2025 15:55 UTERINE ACTIVITY Monitor Mode: External Frequency (min): 4-5 Quality: Moderate Duration (sec): 40-80 Pattern: Normal: <= 5 Contractions in 10 Minutes Resting Tone (Palpate): Relaxed Pitocin Checklist: No More than 1 Late Deceleration Occurred in Past 30 Minutes; No More than 2 Variable Decelerations > 60 Seconds in Duration and decreasing >60 bpm in 30 minutes; No More than 5 Uterine Contractions in 10 Minutes for any 20 Minute Interval; Uterus Palpates Soft between Contractions ASSESSMENT A Monitor Mode: External US FHR Baseline Rate : 145 Variability: Moderate 6-25 bpm Decelerations: None Category: Category I Oxygen Method: Room Air Datetime: 07/18/2025 15:49 Patient Care Comments: patient pushing with coaching Datetime: 07/18/2025 15:48 Monitor Interventions for UA: [place] Adjusted Datetime: 07/18/2025 15:33 ANESTHESIA Anesthesia Plans: Spinal Datetime: 07/18/2025 15:30 Accelerations: 15X15 Datetime: 07/18/2025 15:26 PROCEDURE TIME OUT Procedure Verify: Correct Patient Identity; Correct Side and Site are Marked; Accurate Procedure Consent Form; Agreement on Procedure to be Done; Correct Patient Position Epidural Positioning: Sitting Datetime: 07/18/2025 15:21 Anesthesia Comments: Provider in the room Janean Datetime: 07/18/2025 15:13 Notification Reason: Labor Status Datetime: 07/18/2025 14:48 VAGINAL EXAM Dilatation (cm): 8.0 Effacement (%): 80 Station: -1 Exam by: Kami Damon Vaginal Bleeding: None Cervix, Consistency: Soft Datetime: 07/18/2025 13:32 Patient Position/Activity: Left Tilt Datetime: 07/18/2025 13:31 Membrane Status: Ruptured Membranes Rupture Method: Artificial Amniotic Fluid Color: Clear Amniotic Fluid Amount: Large Amniotic Fluid Odor: Normal Datetime: 07/18/2025 13:00 Temperature (C): 36.8 MATERNAL ASSESSMENT Level of Consciousness: Alert Headache: Denies Breath Sounds, Left: Clear and Equal Breath Sounds, Right: Clear and Equal Nausea/Vomiting: Denies RUQ Epigastric Pain: Denies Datetime: 07/18/2025 12:31 Respirations: 16 Datetime: 07/18/2025 10:15 Contraction Comments: unable to determine FHR Baseline Changes: No Baseline Change Datetime: 07/18/2025 10:11 PATIENT CARE IV/Blood Work: IV Started Datetime: 07/18/2025 09:36 DTR's/Clonus: DTRs 2+; No Clonus Datetime: 07/18/2025 09:13 Provider Reviewed Strip: Yes
== END 2025-07-19 18:00 | disposition home or self-care (01) | DRG 807 ==
LOC: WFO 08:18 → FBP 08:23
PROVIDERS: ADMIT Obstetrics & Gynecology; ATTEND Obstetrics & Gynecology

== ENCOUNTER 2025-07-24 10:44 | Observation (INO) ==
--- NOTE | 2025-07-24 11:09 | ED Physician Documentation ---
History of Present Illness Stated complaint Stated Complaint: HIGH BP POST Chief complaint Chief Complaint: Cardiac Additonal information Additional information: Patient is a 35-year-old female with history of gestational hypertension as well as previous episodes of preeclampsia, 6 days who presents to the ER with elevated blood pressure, and headache beginning last night. She has had ongoing lower extremity edema since her third trimester and this is not new today. However she states that the most concerning symptom that she is dealing with is her headache. Denies any visual changes, changes to urination. Denies any chest pain, shortness of breath, flank pain, otherwise feels well. Patient states that her only other medical history is that she has had some episodes of palpitations and has been evaluated by powdered metal supervisor but is not able to tell me further details regarding this at this time. Review of Systems Status of ROS: See HPI Meds/Allgy Home Medications Ambulatory Orders Medication Instructions Recorded Confirmed vitamins 30 30 mg iron-10 1 cap PO DAILY 01/2807/19/25 mg iron-folic acid 1 mg-om3 capsule Allergies Allergies Allergy/AdvReac Type Severity Reaction Status Date / Time No Known Drug Allergies Allergy Verified 07/24/25 10:55 PFSH Active Problems All Active Problems (Updated 07/24/25 @ 11:20 by Moris Ceron MD) Pre-eclampsia (Acute) Chronic hypertension (Acute) Social History Social History (Updated 07/18/25 @ 09:28 by Luke Hi MD) Smoking Status: Never smoker Second hand tobacco smoke exposure: No Do you dip or chew tobacco?: No Do you vape?: No Patient requests smoking cessation consult: No Initiate information on smoking cessation: No Living arrangement: At home Do you feel safe in your home environment?: Yes History of physical, verbal, emotional, or financial abuse?: No ETOH Use: None Substance Use: denies use Are you sexually active?: Yes POLST Patient has POLST: No Exam Exam Vital Signs: Vital Signs x48h Temp Pulse Resp BP Pulse Ox 07/24/25 10:55 36.6 C 70 18 175/103 H 100 Constitutional normal general appearance and no apparent distress HENMT normocephalic Eyes PERRL and conjunctivae normal Respiratory breath sounds equal bilaterally and normal respiratory effort Cardiovascular normal heart rate noted and regular rhythm noted Hypertensive to 180s systolic, radial pulses 2+ and symmetric, regular rate and rhythm. Normal S1-S2. Gastrointestinal abdomen soft to palpation and nontender to palpation Extremities 2+ edema bilateral lower extremity Neurology excavating machine operator II-XII intact, no movement abnormality noted, no focal motor deficit noted and no sensory deficits noted Psychiatry Mental Status Exam documented in the separate MSE oriented x3 Results Vitals Vitals: Vital Signs - 24 hr 07/24/25 10:55 Temperature 36.6 C Temperature Source Temporal Artery Scan Pulse Rate 70 Respiratory Rate 18 Blood Pressure 175/103 H O2 Saturation 100 O2 Source Room air Pain Intensity 5 Oxygen O2 Source Room air Labs Labs: Laboratory Tests 07/24/25 11:11 WBC 5.2 RBC 4.00 L Hgb 11.4 L Hct 35.4 L MCV 88.5 MCH 28.5 MCHC 32.2 RDW 12.8 Plt Count 216 MPV 10.0 Neut # (Auto) 3.2 Lymph # (Auto) 1.3 L [place] # (Auto) 0.4 Eos # (Auto) 0.1 Baso # (Auto) 0.0 Absolute Nucleated RBC 0.00 Nucleated RBC % 0.0 PD Medical Decision Making ED course ED course: Assessment: Patient evaluated in triage area, after talk to on-call SKYDIVING INSTRUCTOR provider who would like to see her for preeclampsia/eclampsia evaluation urgently. Patient endorses only diffuse headache, without evidence of focal deficit on my examination. Hypertensive with systolics in the 180s. Otherwise feels well. Notable 2+ edema in bilateral lower extremities is chronic. After my initial evaluation, we will transfer patient to L&D with no further interventions required in the ER at this time. Labs ordered IV ordered. Discharge Plan Discharge Patient Disposition: 66 [facility] DC/Xfer Condition: Good Clinical Impression: Chronic hypertension, Pre-eclampsia Prescriptions: No Action PNV [id number] 30 mg iron-10 mg iron-1 mg capsule 1 cap PO DAILY Print Language: Tamazight
--- OUTSIDE RECORDS SUMMARY | 2025-07-24 11:16 | EXTERNAL MEDICAL SUMMARY RPT | Continuity of Care Document ---
Author Organization [facility] Address [address] [place], [place] [address]te [address] [place] [id number] Phone Problems date description facility 2025-05-09 11:19 [...] ot specified [facility] 2025-05-16 15:49 Palpitations [facility] 2025-05-16 15:49 Other [facility] 2025-06-26 09:58 Supervision of elder ly [...] Encounter for screeni ng for Streptococcus B [facility] 2025-07-03 10:35 Encounter for screeni ng for Streptococcus [facility] 2025-07-04 00:03 Encounter for screeni ng for Streptococcus B [facility] 2025-07-04 19:43 Supervision of elder ly multigravida, unspecified trimester [facility] 2025-07-04 19:43 Uterine size-date discrepancy, unspecified trimester [facility] 2025-07-05 00:02 Supervision of elder ly multigravida, unspecified trimester [facility] 2025-07-05 00:02 Uterine size-date discrepancy, unspecified trimester [facility] 2025-07-05 08:58 Supervision of elderly multigra fabiana, third trimester [facility] 2025-07-05 08:58 Encounter for screeni ng for Streptococcus B [facility] 2025-07-05 08:59 Encounter for screeni ng for Streptococcus B [facility] 2025-07-10 10:19 Supervision of elder ly multigravida, unspecified trimester [facility] 2025-07-13 14:35 Supervision of elderly multigra fabiana, third trimester [facility] 2025-07-13 14:35 Supervision of elder ly multigravida, unspecified trimester [facility] 2025-07-18 09:31 Essential (primary) hypertensio n [facility] 2025-07-18 09:31 Supervision of elderly multigra fabiana, third trimester [facility] 2025-07-18 09:31 39 weeks gestation of [facility] 2025-07-18 09:32 Essential (primary) hypertensio n [facility] 2025-07-18 09:32 Supervision of elderly multigra fabiana, third trimester [facility] 2025-07-18 09:32 39 weeks gestation of [facility] 2025-07-18 10:18 Essential (primary) hypertensio n [facility] 2025-07-18 10:18 Supervision of elderly multigra fabiana, third trimester [facility] 2025-07-18 10:18 39 weeks gestation of [facility] 2025-07-19 08:05 Essential (primary) hypertensio n [facility] 2025-07-19 08:05 Supervision of elderly edson jung, third trimester [facility] 2025-07-19 08:05 39 weeks gestation of [facility] 2025-07-19 08:06 Essential (primary) hypertensio n [facility] 2025-07-19 08:06 Supervision of elderly edson jung, third trimester [facility] 2025-07-19 08:06 39 weeks gestation of [facility] 2025-07-19 09:34 Essential (primary) hypertensio n [facility] 2025-07-19 09:34 Supervision of elderly edson jung, third trimester [facility] 2025-07-19 09:34 39 weeks gestation of [facility] 2025-07-19 09:46 Essential (primary) hypertensio n [facility] 2025-07-19 09:46 Supervision of elderly edson jung, third trimester [facility] 2025-07-19 09:46 39 weeks gestation of [facility] 2025-07-19 19:10 Essential (primary) hypertensio [facility] 2025-07-19 19:10 Supervision of elderly edson jung, third trimester [facility] 2025-07-19 19:10 39 weeks gestation of [facility] 2025-07-20 14:11 Essential (primary) hypertensio n [facility] 2025-07-20 14:11 Supervision of elderly edson jung, third trimester [facility] 2025-07-20 14:11 Unspecified maternal hypertensi on, third trimester [facility] 2025-07-20 14:11 39 weeks gestation of [facility] Results/Labs test date facility value unit notes Result panel 1 MEAN PLATELET VOLUME 2025-05-09 12:31 [facility] 10.9 fl (missing) GLUCOSE,1H PP 50GM DOSE 2025-05-09 12:31 [facility] 106 mg/dl Social History date description facility
[2025-07-24 11:17] LABS: HCT - HEMATOCRIT 35.4 % (37.0-47.0); HGB - HEMOGLOBIN 11.4 g/dL (12.0-16.0); MEAN PLATELET VOLUME 10.0 fL (7.9-10.8); NRBC ABSOLUTE COUNT (AUTO) 0.00 x10^3/uL; NUCLEATED RED BLOOD CELLS AUTO 0.0 /100WBC; PLT - PLATELET COUNT 216 10^3/uL (130-450); RED CELL DISTRIBUTION WIDTH 12.8 % (12.0-15.0)
[2025-07-24 11:35] LABS: ALT ALANINE AMINOTRANSFERASE 36.0 IU/L (10-60); AST ASPARTATE AMINOTRANSFERASE 24.0 IU/L (10-42); BUN - BLOOD UREA NITROGEN 20.0 mg/dL (6-20); CARBON DIOXIDE - CO2 29.0 mmol/L (21-32); CREATININE 1.0 mg/dL (0.6-1.3); GFR - MDRD 76.0 (>89)
[2025-07-24 12:16] VITALS: O2SAT 99
[2025-07-24 12:23] LABS: TOTAL PROTEIN,URINE TIMED 10.0 mg/dL
--- NOTE | 2025-07-24 12:36 | CONSULTATION NOTE ---
Meds/Allgy Home Medications Ambulatory Orders Medication Instructions Recorded Confirmed vitamins 30 30 mg iron-10 1 cap PO DAILY 01/2807/19/25 mg iron-folic acid 1 mg-om3 capsule Allergies Allergies Allergy/AdvReac Type Severity Reaction Status Date / Time No Known Drug Allergies Allergy Verified 07/24/25 10:55 PFSH Active Problems All Active Problems (Updated 07/24/25 @ 11:20 by Moris Ceron MD) Pre-eclampsia (Acute) Chronic hypertension (Acute) Social History Social History (Updated 07/18/25 @ 09:28 by Luke Hi MD) Smoking Status: Never smoker Second hand tobacco smoke exposure: No Do you dip or chew tobacco?: No Do you vape?: No Patient requests smoking cessation consult: No Initiate information on smoking cessation: No Living arrangement: At home Do you feel safe in your home environment?: Yes History of physical, verbal, emotional, or financial abuse?: No ETOH Use: None Substance Use: denies use Are you sexually active?: Yes POLST Patient has POLST: No Results Lab Results 07/24/25 11:11 07/24/25 11:11 Other Lab Results: Lab Results x24hrs 07/24/25 07/24/25 Range/Units 11:45 11:11 WBC 5.2 (4.8-10.8) x10^3/uL RBC 4.00 L (4.20-5.40) 10^6/uL Hgb 11.4 L (12.0-16.0) g/dL Hct 35.4 L (37.0-47.0) % MCV 88.5 (81.0-99.0) fL MCH 28.5 (27.0-31.0) pg MCHC 32.2 (32.0-36.0) g/dL RDW 12.8 (12.0-15.0) % Plt Count 216 (130-450) 10^3/uL MPV 10.0 (7.9-10.8) fL Neut # (Auto) 3.2 (1.5-6.6) 10^3/uL Lymph # (Auto) 1.3 L (1.5-3.5) 10^3/uL [place] # (Auto) 0.4 (0.0-1.0) 10^3/uL Eos # (Auto) 0.1 (0.0-0.7) 10^3/uL Baso # (Auto) 0.0 (0.0-0.1) 10^3/uL Absolute Nucleated RBC 0.00 x10^3/uL Nucleated RBC % 0.0 /100WBC Sodium 140 (135-145) mmol/L Potassium 4.0 (3.5-4.5) mmol/L Chloride 107 (101-111) mmol/L Carbon Dioxide 29 (21-32) mmol/L Anion Gap 4.0 L (6-13) BUN 20 (6-20) mg/dL Creatinine 1.0 (0.6-1.3) mg/dL Estimated GFR (MDRD) 76 L (>89) Glucose 83 (74-104) mg/dL Calcium 8.8 (8.5-10.3) mg/dL Total Bilirubin 0.4 (0.2-1.0) mg/dL AST 24 (10-42) IU/L ALT 36 (10-60) IU/L Alkaline Phosphatase 116 (42-121) IU/L Total Protein 6.6 (6.4-8.9) g/dL Albumin 3.7 (3.2-5.5) g/dL Globulin 2.9 (2.1-4.2) g/dL Albumin/Globulin Ratio 1.3 (1.0-2.2) Urine Creatinine 71.2 mg/dL Ur Total Protein Timed 10 mg/dL Protein/Creatinin Ratio 0.1 (<=0.2) Exam Exam Vital Signs: Vital Signs x48h Temp Pulse Pulse Resp BP BP Pulse Ox 07/24/25 12:18 152/93 H 07/24/25 11:45 147/90 H 07/24/25 11:32 36.7 C 61 17 154/95 H 99 07/24/25 10:55 36.6 C 70 18 175/103 H 100 Conclusion/Plan Lab Results 07/24/25 11:11 07/24/25 11:11
[2025-07-24] MEDS ORDERED: LABETALOL 100 MG TABLET PO SCH (13:30)
[2025-07-24] MEDS: ACETAMINOPHEN 500 MG TABLET PO SCH (13:32)
[2025-07-24] MEDS: LABETALOL 100 MG TABLET PO SCH ×2 (13:36→20:41)
--- NOTE | 2025-07-24 15:43 | PHARMACY PROGRESS NOTE ---
Best Possible Medication History Admit Date and Time: 07/24/25 [id number] Home Medications Medication Instructions Recorded Confirmed Type vitamins 30 30 mg iron-10 1 cap PO DAILY 01/2807/24/25 History mg iron-folic acid 1 mg-om3 capsule Processed by: Pharmacy (Medication reconciliation completed by HeadhunterHallie) Medications reviewed in ED?: No Medication History completed: Yes Patient Interview: Completed Secondary Source(s): Insurance records [facility] Statement: As the person ultimately responsible for medication therapy, providers are able to order a medication from an existing home medication list in [facility] via the "Reconcile Routine" prior to Confirmation of that medication by passport support associate. Such practice is discouraged except when the physician, in their clinical judgment, deems that a medical need exists for a medication without regard to previous use.
[2025-07-24] MEDS: LABETALOL 100 MG TABLET PO STA (16:13)
[2025-07-24] MEDS: FUROSEMIDE 20 MG/2 ML VIAL IVP ONE (16:13)
[2025-07-24] MEDS ORDERED: LABETALOL 20 MG/4 ML SYRINGE IVP ONE ×2 (17:08→17:10)
[2025-07-24] MEDS: LABETALOL 20 MG/4 ML SYRINGE IVP ONE ×2 (17:13→17:29)
[2025-07-24] MEDS ORDERED: hydrALAZINE INJ 20 MG/ML VIAL IVP PRN ×2 (17:34)
[2025-07-24] MEDS ORDERED: LABETALOL 20 MG/4 ML SYRINGE IVP PRN ×3 (17:34→18:30)
[2025-07-24] MEDS ORDERED: LABETALOL 5 MG/1 ML 20 ML MDV ONE (17:51)
[2025-07-24] MEDS: LABETALOL 20 MG/4 ML SYRINGE IVP PRN (18:00)
[2025-07-24] MEDS ORDERED: LABETALOL 5 MG/1 ML 20 ML MDV IVP PRN (18:04)
[2025-07-24] MEDS: MAGNESIUM SULFATE 4 GRAM 4 GM/50 ML BAG IV ONE (18:10)
[2025-07-24] MEDS: MAGNESIUM SULFATE IN WATER 20 GM/500 ML IV.SOLN IV SCH (18:40)
[2025-07-24] MEDS: LACTATED RINGERS 1,000 ML IV SCH (18:41)
--- NOTE | 2025-07-24 18:52 | HISTORY & PHYSICAL EXAMINATION ---
History of Present Illness History of Present Illness HPI Comment/Other: Patient is a 35-year-old G5, P4 status post spontaneous vaginal delivery on 07/18/2025. She has chronic hypertension, not on medications. She developed high blood pressure at home as well as a headache. She came in to triage and was noted to have significant elevated blood pressures. Headache did resolve with Tylenol. She denies changes in her vision, right upper quadrant pain. No shortness of breath or difficulty breathing. Meds/Allgy Home Medications Ambulatory Orders Medication Instructions Recorded Confirmed vitamins 30 30 mg iron-10 1 cap PO DAILY 01/2807/24/25 mg iron-folic acid 1 mg-om3 capsule Allergies Allergies Allergy/AdvReac Type Severity Reaction Status Date / Time No Known Drug Allergies Allergy Verified 07/24/25 10:55 PFSH Active Problems All Active Problems (Updated 07/24/25 @ 18:51 by Luke Hi MD) Pre-eclampsia (Acute) Chronic hypertension (Acute) Social History Social History (Updated 07/18/25 @ 09:28 by Luke Hi MD) Smoking Status: Never smoker Second hand tobacco smoke exposure: No Do you dip or chew tobacco?: No Do you vape?: No Patient requests smoking cessation consult: No Initiate information on smoking cessation: No Living arrangement: At home Do you feel safe in your home environment?: Yes History of physical, verbal, emotional, or financial abuse?: No ETOH Use: None Substance Use: denies use Are you sexually active?: Yes POLST Patient has POLST: No Exam Exam Vital Signs: Vital Signs x48h Temp Pulse Pulse Resp BP BP Pulse Ox 07/24/25 17:41 58 L 153/91 H 07/24/25 17:29 61 169/99 H 07/24/25 17:13 63 160/100 H 07/24/25 16:18 165/101 H 07/24/25 15:01 62 159/97 H 07/24/25 14:00 157/94 H 07/24/25 13:30 151/93 H 07/24/25 13:00 155/87 H 07/24/25 12:45 156/92 H 07/24/25 12:30 144/90 H 07/24/25 12:15 155/91 H 07/24/25 12:00 152/93 H 07/24/25 11:45 147/90 H 07/24/25 11:32 36.7 C 61 17 154/95 H 99 07/24/25 10:55 36.6 C 70 18 175/103 H 100 Constitutional: alert, no acute distress, well hydrated, well developed, well nourished, appropriate dress. Cardiovascular: Regular rate and rhythm. Respiratory: no respiratory distress. Clear to auscultation bilaterally Abdomen: nondistended, nontender, no guarding. Neuro: 1+ DTRs, no clonus Psych: affect and mood appropriate, normal interaction, good eye contact. Conclusion/Plan Problem List (1) Chronic hypertension: Plan: Plan admit for observation for chronic hypertension versus preeclampsia. While this can be difficult to discern, she was stable for about 6 hours, then having repeated elevated blood pressures. She did receive acute antihypertensives of 28, 40, 80 mg of labetalol. She was started on magnesium sulfate for seizure prophylaxis. Plan observe overnight as we titrate oral medications. She did receive 1 dose of IV Lasix as she did have significant swelling. Will continue BID. (2) Pre-eclampsia: Plan: As above Qualifiers: Trimester: unspecified trimester Qualified Code(s): O14.90 - Unspecified pre-eclampsia, unspecified trimester Lab Results 07/24/25 11:11 07/24/25 11:11
[2025-07-24] MEDS: FUROSEMIDE 20 MG/2 ML VIAL IVP SCH (20:27)
--- NOTE | 2025-07-25 08:01 | PROVIDER PROGRESS NOTE ---
Subjective Subjective Subjective: Patient is a 35-year-old now 1 week from a spontaneous vaginal delivery. She has chronic hypertension, developed severe range blood pressures last night. She was on magnesium overnight and after initial treatment it did well for approximately 12 hours then blood pressure started to increase again. Overnight, she also developed a headache, that is improving with Tylenol. She had a headache on arrival yesterday, but this also resolved with Tylenol. No changes in vision or right upper quadrant pain. Physical Exam Constitutional: alert, no acute distress, well hydrated, well developed, well nourished, appropriate dress. Cardiovascular: Regular rate and rhythm. Respiratory: no respiratory distress. Clear to auscultation bilaterally Abdomen: nondistended, nontender, no guarding. Neuro: 2+ DTRs, no clonus (clonus noted previously by nursing assessment) Psych: affect and mood appropriate, normal interaction, good eye contact. Current Medications Current Medications Current Medications: Current Medications Generic Name Dose Route Start Last Admin Trade Name Freq PRN Reason Stop Dose Admin Acetaminophen 1,000 mg 07/24/25 13:00 07/25/25 06:35 Acetaminophen 500 Mg Tablet PO 1,000 mg Q6HR JACQUELINE Administration Furosemide 20 mg 07/24/25 20:00 07/24/25 20:27 Furosemide 20 Mg/2 Ml Vial IVP 20 mg BIDDIURETIC JACQUELINE Administration Hydralazine HCl 10 mg 07/24/25 17:34 Hydralazine Inj 20 Mg/Ml Vial IVP .ONCE PRN SBP> or= 160 OR DBP> or= 110 Hydralazine HCl 5 - 10 mg 07/24/25 17:34 Hydralazine Inj 20 Mg/Ml Vial IVP Q20M PRN SBP> or= 160 OR DBP> or= 110 Protocol Magnesium Sulfate 20 gm in 500 mls @ 50 mls/hr 07/24/25 18:00 07/25/25 06:00 Magnesium Sulf 20 G/500 Ml Bag IV Not Given .Q10H JACQUELINE Lactated Ringer's 1,000 mls @ 50 mls/hr 07/24/25 18:00 07/25/25 06:00 Lr IV 0 mls/hr .Q20H JACQUELINE Infusion Ibuprofen 600 mg 07/24/25 12:33 Ibuprofen 600 Mg Tablet PO Q6HR PRN HEADACHE Labetalol HCl 20 mg 07/24/25 17:34 Labetalol 20 Mg/4 Ml Syringe IVP .ONCE PRN SBP> or= 160 OR DBP> or= 110 Labetalol HCl 20 - 40 mg 07/24/25 17:34 Labetalol 20 Mg/4 Ml Syringe IVP Q10M PRN SBP> or= 160 OR DBP> or= 110 Protocol Labetalol HCl 20 - 80 mg 07/24/25 18:30 Labetalol 20 Mg/4 Ml Syringe IVP Q10M PRN SBP> or= 160 OR DBP> or= 110 Protocol Labetalol HCl 200 mg 07/24/25 21:00 07/24/25 20:41 Labetalol 100 Mg Tablet PO 200 mg BID JACQUELINE Administration Nifedipine 10 - 20 mg 07/24/25 17:34 Nifedipine 10 Mg Capsule PO Q20M PRN SBP> or= 160 OR DBP> or= 110 Protocol Objective Vital Signs/Intake & Output Vital Signs: Vital Signs x48h Temp Pulse Resp BP 07/25/25 07:15 150/96 H 07/25/25 07:05 157/97 H 07/25/25 06:57 143/100 H 07/25/25 06:45 155/98 H 07/25/25 06:35 154/95 H 07/25/25 06:20 165/103 H 07/25/25 04:00 36.5 C 74 17 158/99 H 07/25/25 03:00 152/95 H 07/25/25 02:00 71 17 149/94 H 07/25/25 01:00 77 16 145/88 H Intake & Output: Intake & Output 07/22/25 07/23/25 07/24/25 07/25/25 23:59 23:59 23:59 23:59 Intake Total 450 / 450 2074 / 207 Output Total 1750 / 1750 2100 / 2100 Balance -1300 / -1299 - Weight (kg) 217 lb 2.485 oz Lab Results 07/25/25 08:20 07/25/25 08:20 Other Labs: Lab Results x24hrs 07/24/25 07/24/25 Range/Units 11:45 11:11 WBC 5.2 (4.8-10.8) x10^3/uL RBC 4.00 L (4.20-5.40) 10^6/uL Hgb 11.4 L (12.0-16.0) g/dL Hct 35.4 L (37.0-47.0) % MCV 88.5 (81.0-99.0) fL MCH 28.5 (27.0-31.0) pg MCHC 32.2 (32.0-36.0) g/dL RDW 12.8 (12.0-15.0) % Plt Count 216 (130-450) 10^3/uL MPV 10.0 (7.9-10.8) fL Neut # (Auto) 3.2 (1.5-6.6) 10^3/uL Lymph # (Auto) 1.3 L (1.5-3.5) 10^3/uL Luna # (Auto) 0.4 (0.0-1.0) 10^3/uL Eos # (Auto) 0.1 (0.0-0.7) 10^3/uL Baso # (Auto) 0.0 (0.0-0.1) 10^3/uL Absolute Nucleated RBC 0.00 x10^3/uL Nucleated RBC % 0.0 /100WBC Sodium 140 (135-145) mmol/L Potassium 4.0 (3.5-4.5) mmol/L Chloride 107 (101-111) mmol/L Carbon Dioxide 29 (21-32) mmol/L Anion Gap 4.0 L (6-13) BUN 20 (6-20) mg/dL Creatinine 1.0 (0.6-1.3) mg/dL Estimated GFR (MDRD) 76 L (>89) Glucose 83 (74-104) mg/dL Calcium 8.8 (8.5-10.3) mg/dL Total Bilirubin 0.4 (0.2-1.0) mg/dL AST 24 (10-42) IU/L ALT 36 (10-60) IU/L Alkaline Phosphatase 116 (42-121) IU/L Total Protein 6.6 (6.4-8.9) g/dL Albumin 3.7 (3.2-5.5) g/dL Globulin 2.9 (2.1-4.2) g/dL Albumin/Globulin Ratio 1.3 (1.0-2.2) Urine Creatinine 71.2 mg/dL Ur Total Protein Timed 10 mg/dL Protein/Creatinin Ratio 0.1 (<=0.2) Assessment/Plan Problem List (1) Chronic hypertension: Impression: Somewhat better than yesterday. Swelling has decreased mildly. Additional dose of furosemide given this morning. Also increased labetalol to 300 twice daily. Has had no sustained elevated blood pressures this morning, most recently 131/88, peak of 168/102. Plan to observe blood pressure throughout the day and titrate oral medications as needed. As her increase in labetalol, will treat acute hypertension with hydralazine. Did have a problem with nifedipine previously, so we will try to avoid. (2) Pre-eclampsia: Impression: Did receive 12 hours magnesium sulfate with well-controlled blood pressures and this was discontinued as labs were normal. After discontinuation, blood pressure elevated again. This is likely not correlated to discontinue the magnesium sulfate as it is not likely to decrease blood pressure. Qualifiers: Trimester: unspecified trimester Qualified Code(s): O14.90 - Unspecified pre-eclampsia, unspecified trimester
[2025-07-25] MEDS: LABETALOL 100 MG TABLET PO SCH ×2 (08:12→14:09)
[2025-07-25] MEDS: IBUPROFEN 600 MG TABLET PO PRN (08:14)
[2025-07-25 08:25] LABS: HCT - HEMATOCRIT 35.6 % (37.0-47.0); HGB - HEMOGLOBIN 12.0 g/dL (12.0-16.0); MEAN PLATELET VOLUME 10.0 fL (7.9-10.8); NRBC ABSOLUTE COUNT (AUTO) 0.00 x10^3/uL; NUCLEATED RED BLOOD CELLS AUTO 0.0 /100WBC; PLT - PLATELET COUNT 223 10^3/uL (130-450); RED CELL DISTRIBUTION WIDTH 12.9 % (12.0-15.0)
[2025-07-25 08:42] LABS: ALT ALANINE AMINOTRANSFERASE 34.0 IU/L (10-60); AST ASPARTATE AMINOTRANSFERASE 22.0 IU/L (10-42); BUN - BLOOD UREA NITROGEN 13.0 mg/dL (6-20); CARBON DIOXIDE - CO2 29.0 mmol/L (21-32); CREATININE 0.9 mg/dL (0.6-1.3); GFR - MDRD 85.0 (>89)
[2025-07-25 11:02] VITALS: TEMP 98.6
[2025-07-25 17:31] VITALS: BP 152/97
--- NOTE | 2025-07-25 17:41 | Labor Flowsheet ---
Labor Flowsheet Datetime Report Generated by CPN: 07/25/2025 17:40 Datetime: 07/19/2025 17:51 VITAL SIGNS NBP Sys/Chica/Mean (mmHg): 136 : 82 : 94 Pulse: 82 Datetime: 07/19/2025 17:50 SpO2 (%): 99 Datetime: 07/18/2025 16:44 Membranes Ruptured Date/Time: 07/18/2025 13:30 Datetime: 07/18/2025 16:38 MEDICATIONS Pitocin (milliunits): Discontinued Datetime: 07/18/2025 16:20 Stage of : Recovery Datetime: 07/18/2025 16:19 Communication Comments: Delivery of placenta Datetime: 07/18/2025 16:17 Medication Comments: Pitocin Bolus Datetime: 07/18/2025 16:13 COMMUNICATION Communication: RN at Bedside; Provider at Bedside Datetime: 07/18/2025 16:11 LaborFlag: Labor Datetime: 07/18/2025 16:03 Comments: Audible FHR Not showing in the monitor Datetime: 07/18/2025 16:01 Monitor Interventions for FHR: Ultrasound Adjusted Datetime: 07/18/2025 15:55 UTERINE ACTIVITY Monitor Mode: External Frequency (min): 4-5 Quality: Moderate Duration (sec): 40-80 Pattern: Normal: <= 5 Contractions in 10 Minutes Resting Tone (Palpate): Relaxed Pitocin Checklist: No More than 1 Late Deceleration Occurred in Past 30 Minutes; No More than 2 Variable Decelerations > 60 Seconds in Duration and decreasing >60 bpm in 30 minutes; No More than 5 Uterine Contractions in 10 Minutes for any 20 Minute Interval; Uterus Palpates Soft between Contractions ASSESSMENT A Monitor Mode: External US FHR Baseline Rate : 145 Variability: Moderate 6-25 bpm Decelerations: None Category: Category I Oxygen Method: Room Air Datetime: 07/18/2025 15:49 Patient Care Comments: patient pushing with coaching Datetime: 07/18/2025 15:48 Monitor Interventions for UA: Bris[place] Campanero Adjusted Datetime: 07/18/2025 15:33 ANESTHESIA Anesthesia Plans: Spinal Datetime: 07/18/2025 15:30 Accelerations: 15X15 Datetime: 07/18/2025 15:26 PROCEDURE TIME OUT Procedure Verify: Correct Patient Identity; Correct Side and Site are Marked; Accurate Procedure Consent Form; Agreement on Procedure to be Done; Correct Patient Position Epidural Positioning: Sitting Datetime: 07/18/2025 15:21 Anesthesia Comments: Provider in the room Janean Datetime: 07/18/2025 15:13 Notification Reason: Labor Status Datetime: 07/18/2025 14:48 VAGINAL EXAM Dilatation (cm): 8.0 Effacement (%): 80 Station: -1 Exam by: Kami Damon Vaginal Bleeding: None Cervix, Consistency: Soft Datetime: 07/18/2025 13:32 Patient Position/Activity: Left Tilt Datetime: 07/18/2025 13:31 Membrane Status: Ruptured Membranes Rupture Method: Artificial Amniotic Fluid Color: Clear Amniotic Fluid Amount: Large Amniotic Fluid Odor: Normal Datetime: 07/18/2025 13:00 Temperature (C): 36.8 MATERNAL ASSESSMENT Level of Consciousness: Alert Headache: Denies Breath Sounds, Left: Clear and Equal Breath Sounds, Right: Clear and Equal Nausea/Vomiting: Denies RUQ Epigastric Pain: Denies Datetime: 07/18/2025 12:31 Respirations: 16 Datetime: 07/18/2025 10:15 Contraction Comments: unable to determine FHR Baseline Changes: No Baseline Change Datetime: 07/18/2025 10:11 PATIENT CARE IV/Blood Work: IV Started Datetime: 07/18/2025 09:36 DTR's/Clonus: DTRs 2+; No Clonus Datetime: 07/18/2025 09:13 Provider Reviewed Strip: Yes
--- NOTE | 2025-07-27 16:15 | Discharge Summary ---
Discharge Summary Admit Date: 07/24/25 Discharge Date: 07/25/25 Discharging Provider: Luke Hi Code Status: Attempt Resuscitation DIAGNOSES Admission Diagnoses: Chronic hypertension with superimposed preeclampsia with severe features Discharge Diagnoses with Status of Each Condition: Same HPI History of Present Illness: Subjective Patient had a headache earlier today, but resolved again with analgesics. No symptoms currently. No changes in vision, right upper quadrant pain. Feels like she is ready to go home.Objective Physical Exam Constitutional: alert, no acute distress, well hydrated, well developed, well nourished, appropriate dress. Cardiovascular: Regular rate and rhythm. Respiratory: no respiratory distress. Clear to auscultation bilaterally Abdomen: nondistended, nontender, no guarding. Neuro: 1+ DTRs, no clonus Psych: affect and mood appropriate, normal interaction, good eye contact. HOSPITAL COURSE Hospital Course: Patient was admitted 6 days for elevated blood pressures at home and a headache. Headache improved with analgesics. She was observed for several hours without severe-ranged pressures and was started with oral antihypertensives, but then elevated. She was treated with acute antihypertensives and started on magnesium sulfate. She continued this to the next day without issue, but after discontinuation, had increased blood pressure once again. We increased her oral dosing and was observed through the day with increased activity. She had some volatile pressures, but no additional severe- ranged pressures. She was discharge with instructions to monitor blood pressure and follow up in clinic in two days, warning signs, and instructions to call back with any status. ALLERGIES Allergies Allergy/AdvReac Type Severity Reaction Status Date / Time No Known Drug Allergies Allergy Verified 07/27/25 12:05 MEDICATIONS Ambulatory Orders Medication Instructions Recorded Confirmed vitamins 30 30 mg iron-10 1 cap PO DAILY 01/2807/24/25 mg iron-folic acid 1 mg-om3 capsule labetalol 300 mg tablet 300 mg PO TID #90 tabs 07/2507/27/25 PHYSICAL EXAM AT DISCHARGE Vital Signs: Vital Signs x48h Temp Pulse Resp BP 07/25/25 16:37 149/94 H 07/25/25 16:29 148/93 H 07/25/25 16:18 152/95 H 07/25/25 15:30 149/91 H 07/25/25 15:20 160/94 H 07/25/25 14:18 66 16 153/92 H 07/25/25 13:40 75 156/88 H 07/25/25 13:23 158/93 H 07/25/25 13:13 156/93 H 07/25/25 12:42 152/91 H 07/25/25 12:15 148/88 H 07/25/25 11:35 145/84 H 07/25/25 11:02 37.0 C 141/84 H 07/25/25 10:27 147/85 H LABS 07/25/25 08:20 07/25/25 08:20 FOLLOW UP [facility] TIME SPENT Time Spent in Discharge (Minutes): 30 Discharge Plan Discharge Patient Disposition: Home, Self Care Condition: Good Prescriptions: New labetalol 300 mg tablet 300 mg PO TID Qty: 90 1RF Continued PNV [id number] 30 mg iron-10 mg iron-1 mg capsule 1 cap PO DAILY Diet: Regular Interventions: Discharge Checklist - Nursing Last Done: 07/25/25 17:37 Discharge Vital Signs (30 Minutes) Last Done: 07/25/25 17:30 Print Language: Polish Patient Instructions: Understanding Preeclampsia Stand Alone Forms: PCP List Follow-up Care: Luke Hi MD [Provider Admit Priv/Credential, Obstetrics/Gynecology] Referral Note: Call clinic in the morning to schedule a nurse visit for Friday 07/[address] for BP check per Dr Hi Orders Vitals documented within 30 minutes of discharge?: Yes
== END 2025-07-25 17:39 | disposition home or self-care (01) ==
LOC: ED 10:44 → FBP 10:44
PROVIDERS: ADMIT Obstetrics & Gynecology; ATTEND Obstetrics & Gynecology
DX: O11.5 Pre-existing hypertension with pre-eclampsia, complicating the puerperium

== ENCOUNTER 2025-07-27 11:41 | Observation (INO) ==
[2025-07-27] MEDS ORDERED: hydrALAZINE INJ 20 MG/ML VIAL ONE (12:33)
[2025-07-27 12:35] LABS: HCT - HEMATOCRIT 38.0 % (37.0-47.0); HGB - HEMOGLOBIN 12.5 g/dL (12.0-16.0); MEAN PLATELET VOLUME 10.2 fL (7.9-10.8); NRBC ABSOLUTE COUNT (AUTO) 0.00 x10^3/uL; NUCLEATED RED BLOOD CELLS AUTO 0.0 /100WBC; PLT - PLATELET COUNT 263 10^3/uL (130-450); RED CELL DISTRIBUTION WIDTH 13.0 % (12.0-15.0)
[2025-07-27] MEDS: hydrALAZINE INJ 20 MG/ML VIAL IVP PRN (12:38)
[2025-07-27] MEDS: hydrALAZINE INJ 20 MG/ML VIAL IVP STA (12:39)
--- OUTSIDE RECORDS SUMMARY | 2025-07-27 12:44 | EXTERNAL MEDICAL SUMMARY RPT | Continuity of Care Document ---
Author Organization [facility] Address [address] [place] [id number] Phone Problems date description facility 2025-05-09 11:19 Encounter for superv ision of normal , unspecified, unspecified trimester [facility] 2025-05-10 00:04 Encounter for superv ision of normal , unspecified, unspecified trimester [facility] 2025-05-14 00:00 Urinary tract infection, site n ot specified [facility] 2025-05-14 10:20 Urinary tract infection, site n ot specified [facility] 2025-05-15 13:40 Encounter for immunization [facility] 2025-05-15 13:56 Encounter for immunization [facility] 2025-05-15 15:28 Encounter for immunization [facility] 2025-05-16 15:49 Urinary tract infection, site n ot specified [facility] 2025-05-16 15:49 Palpitations [facility] 2025-05-16 15:49 Other chest pain [facility] 2025-06-26 09:58 Supervision of elder ly [...] screeni ng for Streptococcus [facility] 2025-07-03 10:35 Encounter for screeni ng for Streptococcus [facility] 2025-07-04 00:03 Encounter for screeni ng for Streptococcus [facility] 2025-07-04 19:43 Supervision of elder ly multigravida, unspecified trimester [facility] 2025-07-04 19:43 Uterine size-date discrepancy, unspecified trimester [facility] 2025-07-05 00:02 Supervision of elder ly multigravida, unspecified trimester [facility] 2025-07-05 00:02 Uterine size-date discrepancy, unspecified trimester [facility] 2025-07-05 08:58 Supervision of elderly multigra fabiana, third trimester [facility] 2025-07-05 08:58 Encounter for screeni ng for Streptococcus [facility] 2025-07-05 08:59 Encounter for screeni ng for Streptococcus [facility] 2025-07-10 10:19 Supervision of elder ly multigravida, unspecified trimester [facility] 2025-07-13 14:35 Supervision of elderly multigra fabiana, third trimester [facility] 2025-07-13 14:35 Supervision of elder ly multigravida, unspecified trimester [facility] 2025-07-18 09:31 Essential (primary) hypertensio n [facility] 2025-07-18 09:31 Supervision of elderly multigra fabiana, third trimester [facility] 2025-07-18 09:31 39 weeks gestation of [facility] 2025-07-18 09:32 Essential (primary) hypertensio n [facility] 2025-07-18 09:32 Supervision of elderly multigra fabiana, third trimester [facility] 2025-07-18 09:32 39 weeks [facility] 2025-07-18 10:18 Essential (primary) hypertensio n [facility] 2025-07-18 10:18 Supervision of elderly multigra fabiana, third trimester [facility] 2025-07-18 10:18 39 weeks gestation of [facility] 2025-07-19 08:05 Essential (primary) hypertensio [facility] 2025-07-19 08:05 Supervision of elderly edson jung, third trimester [facility] 2025-07-19 08:05 39 weeks gestation of [facility] 2025-07-19 08:06 Essential (primary) hypertensio n [facility] 2025-07-19 08:06 Supervision of elderly edson jung, third trimester [facility] 2025-07-19 08:06 39 weeks gestation of [facility] 2025-07-19 09:34 Essential (primary) hypertensio [facility] 2025-07-19 09:34 Supervision of elderly edson jung, third trimester [facility] 2025-07-19 09:34 39 weeks gestation of [facility] 2025-07-19 09:46 Essential (primary) hypertensio [facility] 2025-07-19 09:46 Supervision of elderly edson jung, third trimester [facility] 2025-07-19 09:46 39 weeks gestation of [facility] 2025-07-19 19:10 Essential (primary) hypertensio [facility] 2025-07-19 19:10 Supervision of elderly edson jung, third trimester [facility] 2025-07-19 19:10 39 weeks gestation of [facility] 2025-07-20 14:11 Essential (primary) hypertensio [facility] 2025-07-20 14:11 Supervision of elderly edson jung, third trimester [facility] 2025-07-20 14:11 Unspecified maternal hypertensi on, third trimester [facility] 2025-07-20 14:11 39 weeks gestation of [facility] 2025-07-24 08:30 Essential (primary) hypertensio [facility] 2025-07-24 08:30 Supervision of elderly edson jung, third trimester [facility] 2025-07-24 08:30 Unspecified pre-exis ting hypertension complicating , third trimester [facility] 2025-07-24 08:30 39 weeks gestation of [facility] 2025-07-24 13:19 Essential (primary) hypertensio [facility] 2025-07-24 13:19 Unspecified pre-eclampsia, unsp ecified trimester [facility] 2025-07-24 13:22 Essential (primary) hypertensio [facility] 2025-07-24 13:22 Unspecified pre-eclampsia, unsp ecified trimester [facility] Results/Labs test date facility value unit notes Result panel 1 MEAN PLATELET VOLUME 2025-05-09 12:31 [facility] 10.9 fl (missing) GLUCOSE,1H PP 50GM DOSE 2025-05-09 12:31 [facility] 106 mg/dl Social History date description facility
[2025-07-27 12:47] LABS: CARBON DIOXIDE - CO2 29.0 mmol/L (21-32)
--- NOTE | 2025-07-27 12:49 | ED Physician Documentation ---
History of Present Illness Stated complaint Stated Complaint: HIGH BP Chief complaint Chief Complaint: General History obtained from History obtained from: Patient History of Present Illness Timing: Prior to arrival Additonal information Additional information: Patient is a 35-year-old female presenting to the emergency department with elevated blood pressure readings in the 200s at home after 9 days . Her baby was born to term at 39 weeks with no acute complications she was seen here 6 days later and diagnosed with preeclampsia and chronic hypertension and was started on labetalol she has been compliant with that for the past few days at home after she was discharged from OB on the . She notes her blood pressures have been running in the 140s and she has been compliant with the labetalol at home. She notes some persistent lower leg swelling and she is having some chest pain and shortness of breath yesterday today she has a slight headache but no vision changes and no chest pain or shortness of breath at this time she was reporting some chills yesterday. She notes she has been monitoring blood pressures closely at home. She has been her baby and he has been doing well otherwise. Meds/Allgy Home Medications Ambulatory Orders Medication Instructions Recorded Confirmed vitamins 30 30 mg iron-10 1 cap PO DAILY 01/2807/24/25 mg iron-folic acid 1 mg-om3 capsule labetalol 300 mg tablet 300 mg PO TID #90 tabs 07/25 Allergies Allergies Allergy/AdvReac Type Severity Reaction Status Date / Time No Known Drug Allergies Allergy Verified 07/27/25 12:05 PFSH Active Problems All Active Problems (Updated 07/27/25 @ 13:08 by Karely Braxton PA-C) Pre-eclampsia (Acute) Chronic hypertension (Acute) Social History Social History Smoking Status: Never smoker Second hand tobacco smoke exposure: No Do you dip or chew tobacco?: No Do you vape?: No Patient requests smoking cessation consult: No Initiate information on smoking cessation: No Living arrangement: At home Do you feel safe in your home environment?: Yes History of physical, verbal, emotional, or financial abuse?: No ETOH Use: None Substance Use: denies use Are you sexually active?: Yes POLST Patient has POLST: No Exam Exam Vital Signs: Vital Signs x48h Temp Pulse Resp BP Pulse Ox 07/27/25 13:00 61 16 170/92 H 100 07/27/25 12:36 57 L 18 182/101 H 99 07/27/25 12:15 36.4 C L 57 L 16 197/110 H 99 Constitutional normal general appearance HENMT normocephalic and head/scalp atraumatic Eyes PERRL, EOMs intact bilaterally and conjunctivae normal Neck/C-Spine visual inspection normal Chest inspection of chest normal Respiratory breath sounds equal bilaterally, normal respiratory effort and clear to auscultation bilaterally Cardiovascular normal heart rate noted, regular rhythm noted and no gallop Extremities 1+ pitting edema bilaterally Psychiatry oriented x3 and thought process normal Skin Good capillary refill Results Vitals Vitals: Vital Signs - 24 hr 07/27/25 12:15 07/27/25 12:36 07/27/25 13:00 Temperature 36.4 C L Temperature Source Temporal Artery Scan Pulse Rate 57 L 57 L 61 Respiratory Rate 16 18 16 Blood Pressure 197/110 H 182/101 H 170/92 H O2 Saturation 99 99 100 O2 Source Room air Room air Room air Pain Intensity 6 0 Oxygen O2 Source Room air Labs Labs: Laboratory Tests 07/27/25 12:27 WBC 4.7 L RBC 4.30 Hgb 12.5 Hct 38.0 MCV 88.4 MCH 29.1 MCHC 32.9 RDW 13.0 Plt Count 263 MPV 10.2 Neut # (Auto) 2.9 Lymph # (Auto) 1.3 L [place] # (Auto) 0.4 Eos # (Auto) 0.1 Baso # (Auto) 0.1 Absolute Nucleated RBC 0.00 Nucleated RBC % 0.0 Sodium 142 Potassium 4.6 H Chloride 109 Carbon Dioxide 29 Anion Gap 4.0 L BUN 13 Creatinine 0.9 Estimated GFR (MDRD) 85 L Glucose 82 Calcium 9.3 Total Bilirubin 0.5 AST 28 ALT 29 Alkaline Phosphatase 99 Total Protein 7.3 Albumin 4.1 Globulin 3.2 Albumin/Globulin Ratio 1.3 PD Medical Decision Making ED course Complexity details: reviewed old records and reviewed results ED course: Patient is a 35-year-old presenting to the emergency department with elevated blood pressure reading she is about 9 days after giving here [facility] to a 39-week old she had no preeclampsia during this time but she has had it previously with her third child. She notes she was discontinued on blood pressure medication but about 6 days ago she presented here with preeclampsia and was admitted overnight started on labetalol and Lasix she was discharged on 300 mg of labetalol patient was extremely hypertensive at home today with blood pressures at 203 with some headache and lower leg swelling. She has no chest pain or shortness of breath at this time she had a blood pressure SBP 197 on arrival here in the ED she is nontachycardic saturating well on room air normal respiratory rate. OB was called as patient was in triage and given significantly elevated blood pressure readings and labs and meds were ordered for patient. Dr. Malone came down and evaluated patient here in the emergency department she placed orders and hydralazine 10 was given the patient will repeat blood pressure in 20 minutes but patient will be sent to OB floor for further monitoring and evaluation given her significantly elevated blood pressures despite being on labetalol at home. Patient blood pressure downtrend to 170/92 she was transferred after blood pressure was taken after 20 minutes to OB in the care of Dr. Malone Discharge Plan Discharge Patient Disposition: 66 [facility] DC/Xfer Condition: Stable Clinical Impression: Chronic hypertension Pre-eclampsia Qualifiers: Trimester: unspecified trimester Qualified Code(s): O14.90 - Unspecified pre- eclampsia, unspecified trimester Prescriptions: No Action labetalol 300 mg tablet 300 mg PO TID Qty: 90 1RF PNV [id number] 30 mg iron-10 mg iron-1 mg capsule 1 cap PO DAILY Print Language: Korean
[2025-07-27 12:51] LABS: ALT ALANINE AMINOTRANSFERASE 29.0 IU/L (10-60); AST ASPARTATE AMINOTRANSFERASE 28.0 IU/L (10-42); BUN - BLOOD UREA NITROGEN 13.0 mg/dL (6-20); CREATININE 0.9 mg/dL (0.6-1.3); GFR - MDRD 85.0 (>89)
--- NOTE | 2025-07-27 14:15 | HISTORY & PHYSICAL EXAMINATION ---
Admit History Visit Reason Visit Reason: Other (Severe hypertension) Smoking Status: Never smoker Other Maternal History Other Maternal History: HPI: Barbara is a 35 yo with history of chronic hypertension who is 9 days s/p (on 07/18) followed by readmission on 07/24 for superimposed severe preeclampsia. During her readmission, she recieved magnesium sulfate for 12hrs for seizure prophylais and was started on labetalol titrated to 300mg every 8 hours, discharged home on 07/25. She presents to the ED today with severe range blood pressures at home. Took her last dose of labetalol 300mg at home this morning at 0945AM. In the ED, blood pressures remained severe range and she received 10mg IV hydralazine followed by another 5mg IV hydralizine with then normal range BPs. Barbara reports having an intermittent headache, like pressure sensation in the back of her head that kind of travels to her nose. She reports having had a headache similiar to this one when she's had chronic sinusitis in the past. Worse when she lies down. No vision changes or upper abdominal pain. Denies any chest pain or SOB today. Reports her swelling is a little better, still with swelling in her ankles. She has been breast feeding baby. She and family were supposed to be on the road today, moving to [place]. PE: [facility] initially with severe HTN, blood pressures now mildly elevated. Gen: NAD CV: RRR Resp: non labored respirations, CTAB, no crackles appreciated Abd: soft, non tender Ext: 1+ UE DTRs, 1+ pedal edema Labs: admission CBC, CMP reviewed. Protein creatinine ratio pending. A/P: 35 yo PPD#9 s/p , readmitted with chronic hypertension with superimposed preeclampsia, worsening blood pressure control: - Plan for admission for titration of blood pressure medications. She received IV hydralazine 10mg and then 5mg due to severe hypertension on presentation, blood pressures improved to mild range. Will continue her home dose of labetalol 300mg every 8 hours, and add on Procardia XL 30mg daily. - She does have an intermittent headache on and off, no other neurological symptoms. Preeclampsia labs normal (protein creatinine ratio pending). Discussed risks/benefits of magnesium sulfate for seizure prophylaxis, will defer at this time. If she develops worsening neurological symptoms then would start it. - Continue routine care. Nubia Malone MD HPI Current : Vital Signs Temperature 98.2 F 07/27/25 13:28 Pulse Rate 73 07/27/25 14:07 Respiratory Rate 19 07/27/25 13:57 Blood Pressure 143/84 H 07/27/25 14:07 O2 Saturation 98 07/27/25 14:07 Meds/Allgy Home Medications Ambulatory Orders Medication Instructions Recorded Confirmed vitamins 30 30 mg iron-10 1 cap PO DAILY 01/2807/24/25 mg iron-folic acid 1 mg-om3 capsule labetalol 300 mg tablet 300 mg PO TID #90 tabs 07/2507/27/25 Allergies Allergies Allergy/AdvReac Type Severity Reaction Status Date / Time No Known Drug Allergies Allergy Verified 07/27/25 12:05 PFSH Active Problems All Active Problems (Updated 07/27/25 @ 16:50 by Nubia Malone MD) Chronic hypertension (Acute) care following vaginal delivery (Acute) Pre-eclampsia (Acute) Social History Social History Smoking Status: Never smoker Second hand tobacco smoke exposure: No Do you dip or chew tobacco?: No Do you vape?: No Patient requests smoking cessation consult: No Initiate information on smoking cessation: No Living arrangement: At home Do you feel safe in your home environment?: Yes History of physical, verbal, emotional, or financial abuse?: No ETOH Use: None Substance Use: denies use Are you sexually active?: Yes POLST Patient has POLST: No Physical Abdominal Exam Vital Signs: Temp Pulse Resp BP Pulse Ox 98.2 F 73 19 143/84 H 98 07/27/25 13:28 07/27/25 14:07 07/27/25 13:57 07/27/25 14:07 07/27/25 14:07 Plan for Labor Plan For Labor I expect patient to be DC'd or transferred within 96 hours.: Yes Conclusion/Plan Problem List (1) care following vaginal delivery: (2) Chronic hypertension: (3) Pre-eclampsia: Qualifiers: Trimester: unspecified trimester Qualified Code(s): O14.90 - Unspecified pre-eclampsia, unspecified trimester Lab Results 07/27/25 12:27 07/27/25 12:27
[2025-07-27] MEDS ORDERED: NALOXONE 0.4 MG/ML VIAL IVP PRN (14:41)
[2025-07-27] MEDS ORDERED: LABETALOL 5 MG/1 ML 20 ML MDV IVP PRN (14:41)
[2025-07-27] MEDS ORDERED: HYDROCORTISONE 1% CREAM 28 GM TUBE TOP PRN (14:41)
[2025-07-27] MEDS ORDERED: DOCUSATE SODIUM 100 MG CAPSULE PO PRN (14:41)
[2025-07-27] MEDS ORDERED: METOCLOPRAMIDE 10 MG TABLET PO PRN (14:41)
[2025-07-27] MEDS ORDERED: hydrALAZINE INJ 20 MG/ML VIAL IVP PRN ×2 (14:41)
[2025-07-27] MEDS ORDERED: LABETALOL 20 MG/4 ML SYRINGE IVP PRN ×2 (14:41)
[2025-07-27] MEDS ORDERED: oxyCODONE 5 MG TABLET PO PRN (14:41)
[2025-07-27] MEDS ORDERED: WITCH HAZEL/GLYCERIN 1 PAD TOP PRN (14:41)
[2025-07-27] MEDS: LABETALOL 300 MG TABLET PO SCH (15:33)
[2025-07-27] MEDS: ACETAMINOPHEN 500 MG TABLET PO PRN (16:18)
[2025-07-27] MEDS: NIFEdipine ER 30 MG TABLET PO SCH (16:34)
[2025-07-27] MEDS: IBUPROFEN 600 MG TABLET PO PRN (18:55)
[2025-07-27 19:26] LABS: GLUCOSE, URINE (UA) NEGATIVE (NEGATIVE); KETONES,URINE (UA) NEGATIVE (NEGATIVE); OCCULT BLOOD,URINE LARGE (NEGATIVE)
[2025-07-27 19:38] LABS: TOTAL PROTEIN,URINE TIMED 7.0 mg/dL
[2025-07-27 19:43] LABS: SQUAMOUS EPITHELIAL CELL,UR MANY Squamous (<= Few)
[2025-07-28 04:32] VITALS: TEMP 98.1
[2025-07-28 07:57] VITALS: O2SAT 98
--- NOTE | 2025-07-28 09:12 | PHARMACY PROGRESS NOTE ---
Best Possible Medication History Admit Date and Time: 07/27/25 [id number] Home Medications Medication Instructions Recorded Confirmed Type vitamins 30 30 mg iron-10 1 cap PO DAILY 01/2807/28/25 History mg iron-folic acid 1 mg-om3 capsule labetalol 300 mg tablet 300 mg PO TID #90 tabs 07/2507/27/25 Rx Processed by: Pharmacy Medications reviewed in ED?: No Medication History completed: Yes [facility] Statement: As the person ultimately responsible for medication therapy, providers are able to order a medication from an existing home medication list in [facility] via the "Reconcile Routine" prior to Confirmation of that medication by support worker. Such practice is discouraged except when the physician, in their clinical judgment, deems that a medical need exists for a medication without regard to previous use.
--- NOTE | 2025-07-28 10:09 | PROVIDER PROGRESS NOTE ---
Subjective Prog Note Date Prog Note Date: 07/28/25 Prog Note Time: 09:57 Subjective Subjective: Barbara reports that she is feeling better today. Feels relieved that blood pressures are better controlled. She does report continuued headache, feels different then the headache she had yesterday. Reports more of a pounding type headache in the front of her head, starting overnight last night, did improve with tylenol and ibuprofen overnight but still present. Thinks it may be side effect of the nifedipine, was given nifedipine in prior and has similiar symptoms. Would like to see how she does with another dose this morning before considering switching to a different type of medication (discussed hydralazine as an alternative). She denies vision changes, chest pain, SOB, abdominal pain. Having cramping just when she breastfeeds/pumps. Lochia is minimal. Was able to rest overnight as the children and baby were with her spouse, staying in [facility] lodging as they are moving to [place]. Current Medications Current Medications Current Medications: Current Medications Generic Name Dose Route Start Last Admin Trade Name Nikitaq PRN Reason Stop Dose Admin Acetaminophen 1,000 mg 07/27/25 14:41 07/28/25 04:21 Acetaminophen 500 Mg Tablet PO 1,000 mg Q8HR PRN Administration Mild Pain or Fever>38C(100.4F) Docusate Sodium 100 mg 07/27/25 14:41 Docusate Sodium 100 Mg Capsule PO BID PRN constipation Hydralazine HCl 5 - 10 mg 07/27/25 12:27 07/27/25 13:19 Hydralazine Inj 20 Mg/Ml Vial IVP 5 mg Q20M PRN Administration SBP> or= 160 OR DBP> or= 110 Protocol Hydralazine HCl 5 - 10 mg 07/27/25 14:41 Hydralazine Inj 20 Mg/Ml Vial IVP Q20M PRN SBP >=160 and/or DBP >=110 Protocol Hydralazine HCl 10 mg 07/27/25 14:41 Hydralazine Inj 20 Mg/Ml Vial IVP .ONCE PRN SBP> or= 160 OR DBP> or= 110 Protocol Hydrocortisone 1 applic 07/27/25 14:41 Hydrocortisone 1% Cream 28 Gm Tube TOP QID PRN Hemorrhoids Ibuprofen 600 mg 07/27/25 14:41 07/28/25 04:21 Ibuprofen 600 Mg Tablet PO 600 mg Q6HR PRN Administration Moderate Pain (Level 4-6) Labetalol HCl 300 mg 07/27/25 15:00 07/28/25 06:04 Labetalol 300 Mg Tablet PO 300 mg TID JACQUELINE Administration Labetalol HCl 20 mg 07/27/25 14:41 Labetalol 20 Mg/4 Ml Syringe IVP .ONCE PRN SBP >=160 and/or DBP >=110 Protocol Labetalol HCl 20 - 40 mg 07/27/25 14:41 Labetalol 20 Mg/4 Ml Syringe IVP Q10M PRN SBP> or= 160 OR DBP> or= 110 Protocol Labetalol HCl 20 - 80 mg 07/27/25 14:41 Labetalol 5 Mg/1 Ml 20 Ml Mdv IVP Q10M PRN SBP> or= 160 OR DBP> or= 110 Protocol Metoclopramide HCl 5 mg 07/27/25 14:41 Metoclopramide 10 Mg Tablet PO Q6HR PRN Nausea / Vomiting Naloxone HCl 0.4 mg 07/27/25 14:41 Naloxone 0.4 Mg/Ml Vial IVP .ONCE PRN Opioid Overdose Nifedipine 10 - 20 mg 07/27/25 14:41 Nifedipine 10 Mg Capsule PO Q20M PRN SBP >=160 and/or DBP >=110 Protocol Nifedipine 30 mg 07/27/25 14:45 07/28/25 09:53 Nifedipine Er 30 Mg Tablet PO 30 mg DAILY JACQUELINE Administration Oxycodone HCl 5 mg 07/27/25 14:41 Oxycodone 5 Mg Tablet PO Q4HR PRN Severe Pain 6-10 [place]/Glycerin 1 pad 07/27/25 14:41 [place]/Glycerin 1 Pad TOP PRN PRN ITCHING Objective Vital Signs/Intake & Output Vital Signs: Vital Signs x48h Temp Pulse Resp BP Pulse Ox 07/28/25 07:54 98.1 F 73 16 128/83 98 07/28/25 06:10 70 16 140/85 H 99 07/28/25 04:31 98.1 F 80 16 142/87 H 100 Intake & Output: Intake & Output 07/25/25 07/26/25 07/27/25 07/28/25 23:59 23:59 23:59 23:59 Intake Total 975 / 975 100 / 100 Output Total 1700 / 1700 1650 / 1650 Balance -725 / -725 -1550 / -1550 Weight (kg) 214 lb Objective Comments/Other: Gen: NAD Chest: non labored respirations Abd: soft, non tender Ext: improved lower extremity edema, trace. No evidence of DVT. Lab Results 07/27/25 12:27 07/27/25 12:27 Other Labs: Lab Results x24hrs 07/27/25 07/27/25 Range/Units 19:13 12:27 WBC 4.7 L (4.8-10.8) x10^3/uL RBC 4.30 (4.20-5.40) 10^6/uL Hgb 12.5 (12.0-16.0) g/dL Hct 38.0 (37.0-47.0) % MCV 88.4 (81.0-99.0) fL MCH 29.1 (27.0-31.0) pg MCHC 32.9 (32.0-36.0) g/dL RDW 13.0 (12.0-15.0) % Plt Count 263 (130-450) 10^3/uL MPV 10.2 (7.9-10.8) fL Neut # (Auto) 2.9 (1.5-6.6) 10^3/uL Lymph # (Auto) 1.3 L (1.5-3.5) 10^3/uL [place] # (Auto) 0.4 (0.0-1.0) 10^3/uL Eos # (Auto) 0.1 (0.0-0.7) 10^3/uL Baso # (Auto) 0.1 (0.0-0.1) 10^3/uL Absolute Nucleated RBC 0.00 x10^3/uL Nucleated RBC % 0.0 /100WBC Sodium 142 (135-145) mmol/L Potassium 4.6 H (3.5-4.5) mmol/L Chloride 109 (101-111) mmol/L Carbon Dioxide 29 (21-32) mmol/L Anion Gap 4.0 L (6-13) BUN 13 (6-20) mg/dL Creatinine 0.9 (0.6-1.3) mg/dL Estimated GFR (MDRD) 85 L (>89) Glucose 82 (74-104) mg/dL Calcium 9.3 (8.5-10.3) mg/dL Total Bilirubin 0.5 (0.2-1.0) mg/dL AST 28 (10-42) IU/L ALT 29 (10-60) IU/L Alkaline Phosphatase 99 (42-121) IU/L Total Protein 7.3 (6.4-8.9) g/dL Albumin 4.1 (3.2-5.5) g/dL Globulin 3.2 (2.1-4.2) g/dL Albumin/Globulin Ratio 1.3 (1.0-2.2) Urine Color LT. YELLOW Urine Clarity HAZY (CLEAR) Urine pH 6.0 (5.0-7.5) PH Ur Specific [place] 1.005 (1.002-1.030) Urine Protein NEGATIVE (NEGATIVE) mg/dL Urine Glucose (UA) NEGATIVE (NEGATIVE) mg/dL Urine Ketones NEGATIVE (NEGATIVE) mg/dL Urine Occult Blood LARGE (NEGATIVE) Urine Nitrite NEGATIVE (NEGATIVE) Urine Bilirubin NEGATIVE (NEGATIVE) Urine Urobilinogen 0.2 (NORMAL) (NORMAL) E.U./dL Ur Leukocyte Esterase TRACE H (NEGATIVE) Urine RBC 0-5 (0-5) /HPF Urine WBC 4-5 (0-5) /HPF Ur Squamous Epith Cells MANY Squamous H (<= Few) Urine Bacteria Few (None Seen) /HPF Ur Microscopic Review INDICATED Urine Culture Comments NOT INDICATED Urine Creatinine 43.8 mg/dL Ur Total Protein Timed 7 mg/dL Protein/Creatinin Ratio 0.2 (<=0.2) Assessment/Plan Problem List (1) Pre-eclampsia: Qualifiers: Trimester: unspecified trimester Qualified Code(s): O14.90 - Unspecified pre-eclampsia, unspecified trimester (2) Chronic hypertension: (3) care following vaginal delivery: Impression: - Overall, BPs much better controlled with the addition of Procardia 30xl to her previous regimen of labetalol 300mg q 8 hrs. However, she is having persistent headache, which in part may be side-effect of the nifedipine. Headache this morning feels different then the headache she had yesterday. Headache is not severe and is partially relieved with tylenol/ibuprofen. Discussed switching to PO hydralazine, but Barbara would like to try one more dose of the Procardia and see how she feels. Since she is still having a headache, we discussed repeating labs this morning to ensure they are stable. We did discuss plan for outpatient follow up as well, would recommend that we follow her closely for at least a week after discharge to make sure we have her blood pressures well controlled before making move to [place], and then will need to have a plan for continued outpatient follow up there once she moves. If blood pressures well controlled and doing well on procardia, possible discharge later today but if we need to switch to hydralazine will likely need to stay another day for titration of medication.
[2025-07-28 10:19] LABS: HCT - HEMATOCRIT 38.7 % (37.0-47.0); HGB - HEMOGLOBIN 12.9 g/dL (12.0-16.0); MEAN PLATELET VOLUME 9.9 fL (7.9-10.8); PLT - PLATELET COUNT 254.0 10^3/uL (130-450); RED CELL DISTRIBUTION WIDTH 12.8 % (12.0-15.0)
[2025-07-28 10:36] LABS: ALT ALANINE AMINOTRANSFERASE 28.0 IU/L (10-60); AST ASPARTATE AMINOTRANSFERASE 21.0 IU/L (10-42); BUN - BLOOD UREA NITROGEN 10.0 mg/dL (6-20); CARBON DIOXIDE - CO2 25.0 mmol/L (21-32); CREATININE 0.8 mg/dL (0.6-1.3); GFR - MDRD 98.0 (>89)
[2025-07-28 15:56] VITALS: BP 128/79
--- NOTE | 2025-07-28 16:18 | Discharge Summary ---
Discharge Summary Admit Date: 07/28/25 Discharge Date: 07/28/25 Discharging Provider: Nubia Malone MD [facility] History of Present Illness: Admission Diagnosis: PPD#9 s/p Chronic hypertension with superimposed preeclampsia Discharge Diagnosis: - Same Procedures: none Hospital Course: Barbara is a 35 yo with history of chronic hypertension who was readmitted 9 days s/p (on 07/18) followed by readmission on 07/24 for superimposed severe preeclampsia. During her first readmission, she recieved magnesium sulfate for 12hrs for seizure prophylaxis and was started on labetalol titrated to 300mg every 8 hours, discharged home on 07/25. She presented to the ED again on 07/27 with severe range blood pressures at home. In the ED, blood pressures remained severe range and she received 10mg IV hydralazine followed by another 5mg IV hydralazine. She was then started on procardia 30mg daily, continued on prior dose of labetaloll 300mg q 8hrs. Blood pressures improved on this regimen, now normal range. Labs were normal on admission yesterday and repeated and normal again today. She has had an intermittent headache, which is improved with tylenol and ibuprofen. PLAN: Plan for discharge home with follow up in clinic on Wednesday for a blood pressure check. Recommended checking blood pressures twice daily and keeping log. BP parameters and when to call or present to the ED were reviewed as well as symptoms to look out for. She and family are moving to [place], recommended that she not move at this time due to need for close outpatient follow up and blood pressure monitoring. ALLERGIES Allergies Allergy/AdvReac Type Severity Reaction Status Date / Time No Known Drug Allergies Allergy Verified 07/27/25 12:05 MEDICATIONS Ambulatory Orders Medication Instructions Recorded Confirmed vitamins 30 30 mg iron-10 1 cap PO DAILY 01/2807/28/25 mg iron-folic acid 1 mg-om3 capsule labetalol 300 mg tablet 300 mg PO TID #90 tabs 07/2507/27/25 nifedipine 30 mg tablet,extended 30 mg PO DAILY #14 ta bs 07/28/25 release 24 hr PHYSICAL EXAM AT DISCHARGE Vital Signs: Vital Signs x48h Temp Pulse Resp BP Pulse Ox 07/28/25 15:54 98.1 F 68 15 128/79 98 07/28/25 14:29 98.1 F 79 16 124/76 98 07/28/25 11:43 98.1 F 69 15 127/78 LABS 07/28/25 10:12 07/28/25 10:12 Discharge Plan Discharge Patient Disposition: Home, Self Care Condition: Stable Prescriptions: New nifedipine 30 mg Tablet Extended Release 24hr 30 mg PO DAILY Qty: 14 0RF Continued labetalol 300 mg tablet 300 mg PO TID Qty: 90 1RF PNV [id number] 30 mg iron-10 mg iron-1 mg capsule 1 cap PO DAILY Activity Restrictions/Additional Instructions: Take your blood pressure twice daily and keep a log. Follow up in clinic for a blood pressure check on 07/31/25. After delivery - recognizing these signs can save your life: Please call the clinic or on-call provider if you experience the following: - blood pressure exceeding 140/90 - severe headache that won't go away - vision changes - Stomach pain - worsening swelling in your hands/face - feeling nauseous or throwing up. If you can't reach your healthcare provider, call 911 or go to an Emergency Department. Make sure to let them know you have recently been . Have Someone take you to the Emergency Department of call 911 if: - Your blood pressure is at or exceeds 160/110 - Shortness of breah or trouble breathing - Seeing spots - Seizures Print Language: Tajik Patient Instructions: Understanding Preeclampsia Stand Alone Forms: PCP List Follow-up Care: Nubia Malone MD [Provider Admit Priv/Credential, Obstetrics/Gynecology]
--- NOTE | 2025-07-28 16:43 | Labor Flowsheet ---
Labor Flowsheet Datetime Report Generated by CPN: 07/28/2025 16:43 Datetime: 07/19/2025 17:51 VITAL SIGNS NBP Sys/Chica/Mean (mmHg): 136 : 82 : 94 Pulse: 82 Datetime: 07/19/2025 17:50 SpO2 (%): 99 Datetime: 07/18/2025 16:44 Membranes Ruptured Date/Time: 07/18/2025 13:30 Datetime: 07/18/2025 16:38 MEDICATIONS Pitocin (milliunits): Discontinued Datetime: 07/18/2025 16:20 Stage of : Recovery Datetime: 07/18/2025 16:19 Communication Comments: Delivery of placenta Datetime: 07/18/2025 16:17 Medication Comments: Pitocin Bolus Datetime: 07/18/2025 16:13 COMMUNICATION Communication: RN at Bedside; Provider at Bedside Datetime: 07/18/2025 16:11 LaborFlag: Labor Datetime: 07/18/2025 16:03 Comments: Audible FHR Not showing in the monitor Datetime: 07/18/2025 16:01 Monitor Interventions for FHR: Ultrasound Adjusted Datetime: 07/18/2025 15:55 UTERINE ACTIVITY Monitor Mode: External Frequency (min): 4-5 Quality: Moderate Duration (sec): 40-80 Pattern: Normal: <= 5 Contractions in 10 Minutes Resting Tone (Palpate): Relaxed Pitocin Checklist: No More than 1 Late Deceleration Occurred in Past 30 Minutes; No More than 2 Variable Decelerations > 60 Seconds in Duration and decreasing >60 bpm in 30 minutes; No More than 5 Uterine Contractions in 10 Minutes for any 20 Minute Interval; Uterus Palpates Soft between Contractions ASSESSMENT A Monitor Mode: External US FHR Baseline Rate : 145 Variability: Moderate 6-25 bpm Decelerations: None Category: Category I Oxygen Method: Room Air Datetime: 07/18/2025 15:49 Patient Care Comments: patient pushing with coaching Datetime: 07/18/2025 15:48 Monitor Interventions for UA: [place] Adjusted Datetime: 07/18/2025 15:33 ANESTHESIA Anesthesia Plans: Spinal Datetime: 07/18/2025 15:30 Accelerations: 15X15 Datetime: 07/18/2025 15:26 PROCEDURE TIME OUT Procedure Verify: Correct Patient Identity; Correct Side and Site are Marked; Accurate Procedure Consent Form; Agreement on Procedure to be Done; Correct Patient Position Epidural Positioning: Sitting Datetime: 07/18/2025 15:21 Anesthesia Comments: Provider in the room Janean Datetime: 07/18/2025 15:13 Notification Reason: Labor Status Datetime: 07/18/2025 14:48 VAGINAL EXAM Dilatation (cm): 8.0 Effacement (%): 80 Station: -1 Exam by: Kami Damon Vaginal Bleeding: None Cervix, Consistency: Soft Datetime: 07/18/2025 13:32 Patient Position/Activity: Left Tilt Datetime: 07/18/2025 13:31 Membrane Status: Ruptured Membranes Rupture Method: Artificial Amniotic Fluid Color: Clear Amniotic Fluid Amount: Large Amniotic Fluid Odor: Normal Datetime: 07/18/2025 13:00 Temperature (C): 36.8 MATERNAL ASSESSMENT Level of Consciousness: Alert Headache: Denies Breath Sounds, Left: Clear and Equal Breath Sounds, Right: Clear and Equal Nausea/Vomiting: Denies RUQ Epigastric Pain: Denies Datetime: 07/18/2025 12:31 Respirations: 16 Datetime: 07/18/2025 10:15 Contraction Comments: unable to determine FHR Baseline Changes: No Baseline Change Datetime: 07/18/2025 10:11 PATIENT CARE IV/Blood Work: IV Started Datetime: 07/18/2025 09:36 DTR's/Clonus: DTRs 2+; No Clonus Datetime: 07/18/2025 09:13 Provider Reviewed Strip: Yes
== END 2025-07-28 16:20 | disposition home or self-care (01) ==
LOC: FBP 11:41 → ED 11:41 → FBP 13:07
PROVIDERS: ADMIT Obstetrics & Gynecology; ATTEND Obstetrics & Gynecology
DX: O11.5 Pre-existing hypertension with pre-eclampsia, complicating the puerperium